=== PATIENT | male | born 1985 | race Caucasian/White ===

== ENCOUNTER 2018-03-15 08:23 | Emergency (ER) | payer MEDICAID, SELFPAY ==
[2018-03-15 08:36] VITALS: BP 152/106; PULSE 109; RESP 16; TEMP 37.2; O2SAT 96
--- NOTE | 2018-03-15 09:24 | ED.GENADUL ---
Disposition Clinical Impression: Gout Disposition: HOME Condition: Good Instructions: Gout (ED) Additional Instructions: Please return to the emergency department if the redness starts to travel up your leg and/or you develop a fever. Prescriptions: Colchicine 0.6 mg PO DAILY #4 tab MethylPREDNISolone [Medrol] 4 mg PO DIRECTED #1 packet Referrals: Shabnam Tejada [Primary Care Provider] - 2 weeks Medical Decision Making - Radiology Data Radiology results: report reviewed (Dr. Olguin: Soft tissue swelling. ), image reviewed (normal ankle x-ray) - Medical Decision Making High suspicion of gout. Less likely fx without injury and less likely cellulitis with no identification of portal of skin. He agreed to x-ray and medication for suspect gout. I agreed to not check uric acid and save the cost, because it would not change my plan of care. Yuri reports some relief after medications. I prescribed him a medrol dose pack and 4 tablets of colchicine. Advised to f/u with PCP Trixie in two weeks. Return to ED if symptoms worsen i.e. ascending redness and/or fever. He agreed with POC. - Differential Diagnosis gout, fx, sprain, cellulitis History of Present Illness - General Chief complaint: Orthopedic Stated complaint: RIGHT SWOLLEN ANKLE Time Seen by Provider: 03/15/18 09:21 Source: patient, RN notes reviewed Mode of arrival: ambulatory Limitations: no limitations - History of Present Illness Initial comments: 32 y/o male here with c/o right ankle pain. He tells me he woke up with the pain and swelling two days ago. Denies any injury. Denies any history of gout. Denies CP or SOB. He denies any new medications or diuretics. He does drink etoh regularly and enjoys a processed food diet, allot of cold cuts. Onset/Timin -: days(s) Location: right (ankle) Severity scale (1-10): 9 Quality: aching Consistency: constant Improves with: none Worsens with: none Associated Symptoms: denies other symptoms Treatments Prior to Arrival: none - Related Data Bupropion HCl [Wellbutrin Xl] 300 mg PO HS 03/05/14 BusPIRone [Buspar] 45 mg PO HS 03/05/14 Quetiapine Fumarate 400 mg PO HS 03/07/14 Chlorzoxazone [Parafon Forte Dsc] 750 mg PO TID 03/15/18 Colchicine 0.6 mg PO DAILY #4 tab 03/15/18 MethylPREDNISolone [Medrol] 4 mg PO DIRECTED #1 packet 03/15/18 Allergies Allergy/AdvReac Type Severity Reaction Status Date / Time No Known Allergies Allergy Unverified 07/04/14 09:41 Review of Systems Constitutional: no symptoms reported Respiratory: no symptoms reported Cardiovascular: denies: chest pain Gastrointestinal: denies: abdominal pain, nausea, vomiting, diarrhea Genitourinary: denies: dysuria Musculoskeletal: joint swelling (right ankle with pain). denies: back pain Skin: denies: rash Past Medical History - Past Medical History TBI, L ankle fx, Surgical history: other (hand surgery) Psychiatric history: anxiety, depression, other (insomnia) General Exam - General Limitations: no limitations General appearance: alert, in no apparent distress - Head Head exam: Present: atraumatic - Eye Eye exam: Present: normal apperance - Neck Neck exam: Present: normal inspection - Extremities Exam Extremities exam: Present: tenderness - Expanded Lower Extremity Exam Right Hip exam: Present: full ROM Upper Leg exam: Present: full ROM Knee exam: Present: full ROM. Absent: tenderness Lower Leg exam: Present: full ROM. Absent: tenderness, swelling, ecchymosis, Jere's sign Ankle exam: Present: full ROM, tenderness, swelling, erythema (to lateral maleous. ). Absent: abrasion, ecchymosis, deformity Foot/Toe exam: Present: full ROM. Absent: tenderness, swelling Neuro vascular tendon exam: Present: no vascular compromise Gait: observed and limited by pain - Back Exam Back exam: Present: full ROM - Neurological Exam Neurological exam: Present: alert, oriented X3, normal gait - Psychiatric Psychiatric exam: Present: normal affect, normal mood - Skin Skin exam: Present: warm, dry, intact, erythema (to right ankle) Course Vital Signs - 24 hr 03/15/18 08:36 Temperature 37.2 C Pulse 109 H Respiratory 16 Rate Blood Pressure 152/106 Pulse Oximetry 96
[2018-03-15] MEDS: Colchicine 0.6 MG TAB 1.2 MG PO (09:36)
[2018-03-15] MEDS: Ketorolac 60 MG/2 ML VIAL IM (09:37)
--- NOTE | 2018-03-15 09:54 | DI.REPORT_ITS ---
SYMPTOM/DIAGNOSIS: RT ANKLE SWELLING AND REDNESS WITHOUT INJURY, SUSPECT GOUT RIGHT ANKLE: There is soft tissue swelling around both malleoli. No fracture or ankle mortise widening is seen. IMPRESSION: Soft tissue swelling.
[2018-03-15 10:35] VITALS: BP 150/98
== END 2018-03-15 10:34 | disposition home or self-care (01) ==
PROVIDERS: Emergency Provider Physician Assistant; PCP Nurse Practitioner Family
DX: M10.9 Gout, unspecified (principal)
CPT/HCPCS: 96372; 99284; 73610; J1885

== ENCOUNTER 2018-11-12 14:13 | Outpatient (REF) | payer MEDICAID, SELFPAY ==
[2018-11-12 19:38] LABS: Abs Immature Grans 0.02 k/cumm (0.0-0.09); Absolute Basophil Count 0.02 k/cumm (0.0-0.2); Absolute Eosinophil Count 0.37 k/cumm (0.0-0.7); Absolute Lymphocyte Count 1.61 k/cumm (1.2-3.4); Absolute Monocyte Count 0.44 k/cumm (0.11-0.7); Basophils % 0.3; HCT 42.1 % (40.0-50.0); HGB 14.9 g/dL (13.5-17.5); Immature Grans % 0.3; Lymphocytes % 26.1; Mean Corp. HGB Concentration 35.4 g/dL (32.0-36.0); Mean Corpuscular Volume 93.1 fL (80-95); Mean Platelet Volume 10.3 fL (8.0-11.0); Monocytes % 7.1; Neutrophils % 60.2; Platelet Count 226 x1000/uL (130-400); RBC 4.52 m/cumm (4.50-6.00); RBC Distribution Width 12.5 % (11.8-14.1); White Blood Cell Count 6.16 k/cumm (4.4-10.8)
[2018-11-12 19:57] LABS: ALT 52 U/L (12-78); AST 54 U/L (15-37); Albumin 3.6 g/dL (3.4-5.0); Alkaline Phosphatase 146 U/L (46-116); Anion Gap 15.7 mmol/L (3-11); BUN 6 mg/dL (7-18); CO2 27.3 mmol/L (21.0-32.0); CREATININE 1.38 mg/dL (0.70-1.30); Calcium 8.9 mg/dL (8.5-10.1); Chloride 97 mmol/L (98-107); Cholesterol 227 mg/dL (50-200); Estimated GFR 59.34 (mL/min/1.73m2); Glucose 124 mg/dL (70-100); HDL Cholesterol 27 mg/dL (40-60); LDL CHOLESTEROL 147 mg/dL (<100); Sodium 140 mmol/L (136-145); TSH (W/Ref FT4) 3.52 uIU/mL (0.358-3.74); Total Protein 7.4 g/dL (6.4-8.2); Triglyceride 387 mg/dL (30-150)
[2018-11-12 20:38] LABS: Potassium 2.7 mmol/L (3.5-5.1)
== END 2018-11-12 14:33 ==
LOC: NCHCN 14:13
PROVIDERS: PCP Nurse Practitioner Family; Visit Provider Nurse Practitioner Family
DX: F31.30 Bipolar disorder, current episode depressed, mild or moderate severity, unspecified (principal); E66.9 Obesity, unspecified; F10.10 Alcohol abuse, uncomplicated
CPT/HCPCS: 80053; 80061; 83721; 84443; 85025

== ENCOUNTER 2019-01-22 16:35 | Outpatient (REF) | payer MEDICAID, SELFPAY ==
[2019-01-22 18:15] LABS: HCT 41.9 % (40.0-50.0); HGB 14.9 g/dL (13.5-17.5); Mean Corp. HGB Concentration 35.6 g/dL (32.0-36.0); Mean Corpuscular Hemoglobin 33.6 pg (27.0-33.0); Mean Corpuscular Volume 94.6 fL (80-95); Mean Platelet Volume 9.6 fL (8.0-11.0); Platelet Count 194 x1000/uL (130-400); RBC 4.43 m/cumm (4.50-6.00); RBC Distribution Width 12.5 % (11.8-14.1)
[2019-01-22 18:27] LABS: Anion Gap 12.1 mmol/L (3-11); BUN 6 mg/dL (7-18); CO2 27.9 mmol/L (21.0-32.0); CREATININE 1.21 mg/dL (0.70-1.30); Calcium 9.1 mg/dL (8.5-10.1); Chloride 98 mmol/L (98-107); Glucose 126 mg/dL (70-100); Sodium 138 mmol/L (136-145)
[2019-01-22 18:36] LABS: Potassium 2.9 mmol/L (3.5-5.1)
== END 2019-01-22 16:55 ==
LOC: NCHCN 16:35
PROVIDERS: PCP Nurse Practitioner Family; Visit Provider Nurse Practitioner Family
DX: E87.6 Hypokalemia (principal); R00.0 Tachycardia, unspecified
CPT/HCPCS: 80048; 85027; 83735

== ENCOUNTER 2019-03-19 16:21 | Outpatient (REF) | payer MEDICAID, SELFPAY ==
[2019-03-19 20:41] LABS: ALT 71 U/L (12-78); AST 72 U/L (15-37); Albumin 3.9 g/dL (3.4-5.0); Alkaline Phosphatase 170 U/L (46-116); Anion Gap 14.9 mmol/L (3-11); BUN 5 mg/dL (7-18); Bilirubin, Total 0.3 mg/dL (0.2-1.0); CO2 25.1 mmol/L (21.0-32.0); Calcium 9.2 mg/dL (8.5-10.1); Chloride 102 mmol/L (98-107); Glucose 113 mg/dL (70-100); Potassium 3.6 mmol/L (3.5-5.1); Sodium 142 mmol/L (136-145); Total Protein 7.7 g/dL (6.4-8.2)
== END 2019-03-19 16:41 ==
LOC: NCHCN 16:21
PROVIDERS: PCP Nurse Practitioner Family; Visit Provider Nurse Practitioner Family
DX: I10 Essential (primary) hypertension (principal); E87.6 Hypokalemia; R00.0 Tachycardia, unspecified
CPT/HCPCS: 80053

== ENCOUNTER 2019-10-12 13:24 | Emergency (ER) | payer MEDICAID, SELFPAY ==
[2019-10-12 13:34] VITALS: BP 122/86; PULSE 107; RESP 15; TEMP 36.7; O2SAT 97
--- NOTE | 2019-10-12 13:44 | ED.GENADUL_ITS ---
Discharge Plan Disposition Patient Disposition: HOME Condition: Stable Discharge Details Chief Complaint: GenMedical Clinical Impression: Right knee sprain, History of gout Primary Care Provider: Tariq Lloyd ED Provider: Katiuska Christy Home Meds and New Rx's Prescriptions: Continued bupropion HCl [Wellbutrin XL] 300 MG tablet extended release 24 hr 300 mg PO HS RF: 0 quetiapine 400 MG tablet 400 mg PO HS RF: 0 colchicine [Colcrys] 0.6 MG tablet 0.6 mg PO DAILY Qty: 4 RF: 0 lisinopril 5 mg Tablet PO DAILY RF: 0 Discharge Instructions Instructions: Knee Sprain (ED), Gout (ED) Additional Instructions: Rest, ice, and elevate the affected area as much as possible. Keep the hinged knee brace in place as long as possible and use the crutches for ambulation while pain present. Alternate tylenol and motrin as needed and directed for pain. If you have no improvement or worsening of symptoms in the next 1 to 2 weeks, follow-up with orthopedics for further evaluation and consideration for physical therapy or outpatient MRI. Return to the emergency department if you develop any worsening or new concerning symptoms. You should also follow-up with your primary care doctor within the next week for further evaluation of your gout. Referrals: Case Forrest MD [ [facility] STAFF PHYSICIAN] - Discharge Data Discharge Date/Time-TO BE ENTERED AT DEPARTURE: 10/12/19 15:13 Discharge Physician: Katiuska Christy Medical Decision Making 34-year-old male with a history of gout presents with right knee pain for the past few days consistent with gout flare which has improved with NSAIDs, now with worsening pain after feeling a popping sensation in the posterior knee while running out of his apartment due to fire alarm last night. Patient is noted to have moderate right knee edema which he states was present with his gout flare this week. He has pain with all range of motion, most significantly with valgus stress but no obvious ligamentous instability. There is no evidence of cellulitis or trauma. He is neurovascularly intact. Patient appeared uncomfortable with range of motion. A dose of Vicodin given. X-ray noted effusion but no other injury. Patient was placed in a hinged knee brace and given crutches. He was advised to follow-up with orthopedics for further evaluation if symptoms do not improve or worsen for consideration for MRI. Usual and customary return precautions given prior to discharge. Imaging Data Radiologic Study: Radiologist's impression: XR Left Knee Exam date and time: 10/12/2019 2:00 PM Age: 34 years old Clinical indication: Pain; Knee; Right; Patient HX: popped while running. Limited rom TECHNIQUE: Imaging protocol: XR Left knee. Views: 4 or more views. COMPARISON: No relevant prior studies available. FINDINGS: Bones/joints: Osseous structures of the knee normal. No fracture. No joint effusion. Soft tissues unremarkable. Soft tissues: See Bones/joints Finding. Small joint effusion. IMPRESSION: Normal knee. Small joint effusion HPI General Mode of arrival: ambulatory . Date/Time Provider Initiated Documentation: 10/12/19 13:32 . Limitations to Documentation: no limitations . Information obtained by: patient . History of Present Illness 34 year old M presents to the emergency department with the chief complaint of Right knee pain, described as moderate, Quality is described as aching, Patient started experiencing this day(s) (3) and it has been constant. Cold therapy improves symptom(s),, Immobilization improves symptom(s), and Rest improves symptom(s), Movement worsens symptoms and Other factors that worsen symptoms (Weightbearing) . Patient notes no other symptoms.. Patient did receive the following treatments prior to arrival, NSAID Related Data Home Medications Medication Instructions Recorded Confirmed bupropion HCl [Wellbutrin XL] 300 mg PO HS 03/05/14 10/12/19 quetiapine 400 mg PO HS 03/07/14 10/12/19 colchicine [Colcrys] 0.6 mg PO DAILY #4 tab 03/15/18 10/12/19 lisinopril mg PO DAILY 10/12/19 Previous Rx's Medication Instructions Recorded colchicine [Colcrys] 0.6 mg PO DAILY #4 tab 03/15/18 Allergies Allergy/AdvReac Type Severity Reaction Status Date / Time dust AdvReac Mild get all Uncoded 10/12/19 13:43 stuffed up General Stated Complaint: GenMedical CARLOS: 3 Review of Systems All systems reviewed & are unremarkable except as noted in HPI and below Constitutional Constitutional: Reports as per HPI, Denies chills and Denies fever(s) Eyes Eyes: Denies blurry vision ENT Ears, Nose, Mouth, and Throat: Denies dizziness, Denies sore throat and Denies throat swelling Cardiovascular Cardiovascular: Denies chest pain and Denies dyspnea Respiratory Respiratory: Denies cough and Denies dyspnea Gastrointestinal Gastrointestinal: Denies abdominal pain, Denies diarrhea and Denies vomiting Genitourinary Genitourinary: Denies hematuria and Denies dysuria Musculoskeletal Musculoskeletal: Denies back pain and Denies numbness Integumentary/Breasts Skin/Breast: Denies lesions and Denies rash Neurologic Neurologic: Denies dizziness, Denies focal weakness and Denies numbness Allergic/Immunologic Allergic/Immunologic: Denies throat swelling [facility] Medical History Anxiety and depression (Inactive) Bipolar disorder (Inactive) Gout (Chronic) Insomnia (Inactive) Surgical History History of hand surgery (Acute) History of oral surgery (Acute) Social History Smoking/Tobacco Use Status: Current every day Alcohol Intake: current Alcohol Intake frequency: a few times a week Drug use: Current Sobriety Substance use type: does not use Do you feel safe at home: Yes Do you feel safe in your relationship?: Yes Exam Const General: cooperative, healthy appearing and no acute distress HENMT Head: normal to inspection Mouth: oral mucosae normal Eyes General: appearance normal, both eyes and all related structures Neck Neck: normal visual inspection Resp Effort & Inspection: normal respiratory effort and able to speak in complete sentences Cardio Rate: regular rate Skin General skin exam: no rashes or lesions noted Neuro General: alert, awake and oriented x3 Motor: muscle tone normal throughout Extrem Other: Right knee: moderate edema extending from anterior to posterior aspect. Pain with valgus stress. Negative anterior and posterior drawer test. Negative Cutler's test. No pain with varus stress. No obvious ligamentous instability. Right lower leg normal to inspection. Right DP/PT pulses intact. Psych Appearance: grossly normal Affect: normal affect Course Vital Signs Vital signs: Vital Signs Temperature 98.1 F 10/12/19 13:34 Pulse 107 H 10/12/19 13:34 Respiratory Rate 15 10/12/19 13:34 Blood Pressure 122/86 10/12/19 13:34 Pulse Oximetry 97 10/12/19 13:34 Temperature 98.1 F 10/12/19 13:34 Temperature Source Tympanic 10/12/19 13:34 Pulse 107 H 10/12/19 13:34 Respiratory Rate 15 10/12/19 13:34 Respiratory Effort Non-Labored 10/12/19 13:35 Blood Pressure 122/86 10/12/19 13:34 Blood Pressure Position Sitting 10/12/19 13:34 Pulse Oximetry 97 10/12/19 13:34 Oxygen Delivery Method Room Air 10/12/19 13:34 Oxygen Flow Rate 0 10/12/19 13:34
--- NOTE | 2019-10-12 13:45 | DI.RAD_ITS ---
EXAM: XR KNEE RT 4V AP,LAT,BONNIE,PAT INDICATION: POP R KNEE WHILE RUNNING, R/O ACUTE FX/EFFUSION. COMPARISON: RIGHT KNEE 3 VIEWS from 04/22/2010 TECHNIQUE: 2D digital imaging was performed. FINDINGS: No fracture is identified. There is a small joint effusion. The joint spaces are well maintained. IMPRESSION: Small joint effusion. DATA REPOSITORY: RADIATION DOSE DELIVERED:
[2019-10-12 13:48] VITALS: RESP 15
[2019-10-12] MEDS: HYDROcodone 5/Acetaminophen 325 TAB PO (14:31)
--- NOTE | 2019-10-12 14:36 | DI.VRAD_ITS ---
PROCEDURE INFORMATION: Exam: XR Left Knee Exam date and time: 10/12/2019 2:00 PM Age: 34 years old Clinical indication: Pain; Knee; Right; Patient HX: popped while running. Limited rom TECHNIQUE: Imaging protocol: XR Left knee. Views: 4 or more views. COMPARISON: No relevant prior studies available. FINDINGS: Bones/joints: Osseous structures of the knee normal. No fracture. No joint effusion. Soft tissues unremarkable. Soft tissues: See Bones/joints Finding. Small joint effusion. IMPRESSION: Normal knee. Small joint effusion Dictated and Authenticated by: Lester Becerra MD. Ordering:FELISA Harp MD
[2019-10-12 15:07] VITALS: BP 128/88; PULSE 104; TEMP 36.8; O2SAT 96
[2019-10-12 15:14] VITALS: BP 128/88; PULSE 104; O2SAT 96
== END 2019-10-12 15:13 | disposition home or self-care (01) ==
PROVIDERS: Emergency Provider Physician Assistant; PCP Nurse Practitioner Family
DX: M25.561 Pain in right knee (principal); S83.91XA Sprain of unspecified site of right knee, initial encounter; X58.XXXA Exposure to other specified factors, initial encounter; Z87.39 Personal history of other diseases of the musculoskeletal system and connective tissue
CPT/HCPCS: 29505; 99284; 73564; 99283; E0114; L1810

== ENCOUNTER 2019-10-25 13:56 | Outpatient (REF) | payer MEDICAID, SELFPAY ==
[2019-10-25 18:37] LABS: HCT 36.7 % (40.0-50.0); HGB 12.1 g/dL (13.5-17.5); Mean Corpuscular Volume 97.1 fL (80-95); Mean Platelet Volume 8.9 fL (8.0-11.0); Platelet Count 653 x1000/uL (130-400); RBC 3.78 m/cumm (4.50-6.00); RBC Distribution Width 12.4 % (11.8-14.1); White Blood Cell Count 5.18 k/cumm (4.4-10.8)
[2019-10-25 19:11] LABS: ALT 22 U/L (16-63); AST 23 U/L (15-37); Albumin 3.3 g/dL (3.4-5.0); Alkaline Phosphatase 190 U/L (46-116); Anion Gap 9.4 mmol/L (3-11); BUN 14 mg/dL (7-18); Bilirubin, Total 0.3 mg/dL (0.2-1.0); CO2 31.6 mmol/L (21.0-32.0); CREATININE 1.34 mg/dL (0.70-1.30); Chloride 100 mmol/L (98-107); Ferritin 216 ng/mL (26-388); Glucose 107 mg/dL (74-106); Potassium 3.1 mmol/L (3.5-5.1); Sodium 141 mmol/L (136-145); Total Protein 7.4 g/dL (6.4-8.2)
[2019-10-25 19:27] LABS: Hemoglobin A1C 5.8 % (3.8-5.6)
[2019-10-25 19:53] LABS: Uric Acid 10.1 mg/dL (3.5-7.2)
[2019-10-28 07:17] LABS: Vitamin D 25 Total 5.9 ng/ml (30-100)
== END 2019-10-25 14:16 ==
LOC: NCHCN 13:56
PROVIDERS: PCP Nurse Practitioner Family; Visit Provider Nurse Practitioner Family
DX: I10 Essential (primary) hypertension (principal); F10.10 Alcohol abuse, uncomplicated; G47.9 Sleep disorder, unspecified
CPT/HCPCS: 80053; 82306; 85027; 82728; 83036; 84550

== ENCOUNTER 2019-11-08 02:30 | Emergency (ER) | payer MEDICAID, SELFPAY ==
[2019-11-08 02:31] VITALS: BP 164/108; PULSE 107; RESP 18; TEMP 36.6; O2SAT 98
--- NOTE | 2019-11-08 02:43 | W.ED.GENAD ---
Discharge Plan Disposition Patient Disposition: HOME Condition: Good Discharge Details Chief Complaint: Orthopedic Clinical Impression: Gout flare Primary Care Provider: Tariq Lloyd ED Provider: Dean Coleman Meds and New Rx's Prescriptions: New Hydrocodone/Apap 5/325, 4 Tab [[place] 5/325, 4 Tabs/Btl] 1 tab PO BID Qty: 0 RF: 0 Continued bupropion HCl [Wellbutrin XL] 300 MG tablet extended release 24 hr 300 mg PO HS RF: 0 quetiapine 400 MG tablet 400 mg PO HS RF: 0 lisinopril 5 mg Tablet PO DAILY RF: 0 Discharge Instructions Instructions: Hydrocodone/Acetaminophen (By mouth), Gout (ED) Additional Instructions: Wear knee brace and use crutches for comfort. Continue ibuprofen for the next couple of days. Hydrocodone/acetaminophen for severe pain. Follow-up with primary care next week for reevaluation. Discussed specifically use of allopurinol to prevent gout flares. Return to ED for fever, increasing pain, redness, swelling of knee. Referrals: Tariq Lloyd, [employer] [Primary Care Provider] - Medical Decision Making Patient has been using ibuprofen throughout the day. He has knee brace and crutches. Has documented history of gout. Is not on allopurinol. Will treat with 1.2 mg dose of colchicine now and 0.6 mg dose in 1 hour. Will give [place] for pain. Will discharge with [place] prepack bottle. Will continue ibuprofen over the next few days as well. Contact primary care for follow-up next week. Discussed specifically use of allopurinol. Patient was made aware of alcohol being a trigger for gouty flares as well. Return to ED for fever, increasing pain, redness, other concerns or problems. Medical Records Medical records reviewed: Yes I reviewed the patient's medical records. HPI General Mode of arrival: EMS. Date/Time Provider Initiated Documentation: 11/08/19 02:31. Limitations to Documentation: no limitations. Information obtained by: patient, RN notes reviewed and old records reviewed. HPI Narrative: Patient presents to ED with worsening right knee pain since yesterday morning. He has a history of gout which typically affects the right ankle or the right knee. He was last seen here at the end of September with gout flare/injury. He did get better. He had been doing fine for the most part in the last 24 hours. He has developed right knee pain and swelling and decreased range of motion once again. There is no injury. There is no redness. There is no fever. He denies any URI symptoms, cough. He does admit to alcohol use. He has had increased gouty flares in the last year. Related Data Home Medications Medication Instructions Recorded Confirmed bupropion HCl [Wellbutrin XL] 300 mg PO HS 03/05/14 11/08/19 quetiapine 400 mg PO HS 03/07/14 11/08/19 lisinopril mg PO DAILY 10/12/19 HYDROcodone/APAP 5/325, 4 tab 1 tab PO BID #0 tab-cap 11/08/19 [[place] 5/325, 4 tabs/btl] Previous Rx's Medication Instructions Recorded HYDROcodone/APAP 5/325, 4 tab 1 tab PO BID #0 tab-cap 11/08/19 [[place] 5/325, 4 tabs/btl] Allergies Allergy/AdvReac Type Severity Reaction Status Date / Time dust AdvReac Mild get all Uncoded 11/08/19 02:36 stuffed up General Stated Complaint: Orthopedic CARLOS: 3 Review of Systems Narrative: As documented in HPI otherwise negative as below. Const: no fever, chills, weakness Resp: no cough, SOB, pleuritic pain CV: no CP, diaphoresis, edema, syncope GI: no abdominal pain, nausea, vomiting, diarrhea Neuro: no headache, numbness, focal weakness, confusion PFSH Social History (System 10/14/19 @ 11:22 by [place] Key) Smoking/Tobacco Use Status: Current every day Alcohol Intake: current Alcohol Intake frequency: a few times a week Drug use: Current Sobriety Substance use type: does not use Do you feel safe at home: Yes Do you feel safe in your relationship?: Yes Exam Narrative Exam Narrative: Vitals: Afebrile. Elevated heart rate and blood pressure likely due to discomfort. Normal room air pulse ox. Const: WDWN male in NAD. HEENT: NC/AT. Normal facial exam. Eyes: Normal conjunctiva and sclera. Neck: Supple. Trachea midline. Lungs: Normal respiratory effort. Neuro: A+O x 3. Normal speech, mentation, gait. Cranial nerves II - XII grossly intact. No gross motor or sensory deficit. Ext: No C/C/E. Right knee with obvious effusion. No erythema. Joint warm to touch. Unable to fully extend. Held in position of comfort at about 30 degrees. Able to flex to about 75 degrees. Neurovascularly intact distally. Skin: Warm and dry without erythema. Course Vital Signs Vital signs: Vital Signs Temperature 97.9 F 11/08/19 02:31 Pulse 107 H 11/08/19 02:31 Respiratory Rate 18 11/08/19 02:31 Blood Pressure 164/108 H 11/08/19 02:31 Pulse Oximetry 98 11/08/19 02:31 Temperature 97.9 F 11/08/19 02:31 Temperature Source Temporal Artery Scan 11/08/19 02:31 Pulse 107 H 11/08/19 02:31 Respiratory Rate 18 11/08/19 02:31 Respiratory Effort 11/08/19 02:38 Blood Pressure 164/108 H 11/08/19 02:31 Blood Pressure Position Sitting 11/08/19 02:31 Pulse Oximetry 98 11/08/19 02:31 Oxygen Delivery Method Room Air 11/08/19 02:31 Oxygen Flow Rate 0 11/08/19 02:31 Pain Level 10 11/08/19 02:31
[2019-11-08] MEDS: Colchicine 0.6 MG TAB 1.2 MG PO (02:48)
[2019-11-08] MEDS: HYDROcodone 5/Acetaminophen 325 TAB PO (02:49)
[2019-11-08] MEDS: Colchicine 0.6 MG TAB PO (04:04)
--- NOTE | 2019-11-08 04:14 | NUR.NOTE ---
Nursing Note: pt reports pain decreased to 6/10. second dose of colchicine given. POC: pt states he cannot obtain a ride home until 0600.
[2019-11-08 05:33] VITALS: BP 166/101; PULSE 87; RESP 18; O2SAT 96
== END 2019-11-08 05:30 | disposition home or self-care (01) ==
PROVIDERS: Emergency Provider Emergency Medicine; PCP Nurse Practitioner Family
DX: M10.9 Gout, unspecified (principal)
CPT/HCPCS: 99283

== ENCOUNTER 2020-02-07 19:15 | Observation (INO) | payer MEDICAID, SELFPAY ==
[2020-02-07 19:21] VITALS: BP 162/128; PULSE 115; RESP 25; TEMP 37.1; O2SAT 99
--- NOTE | 2020-02-07 19:21 | ED.GENADUL_ITS ---
Discharge Plan Disposition Patient Disposition: [facility] INPATIENT Condition: Stable Discharge Details Chief Complaint: PsychEval Clinical Impression: Suicidal ideation, Hypertension, Noncompliance with medications, Major depression Primary Care Provider: Tariq Lloyd ED Provider: Katiuska Christy Home Meds and New Rx's Prescriptions: No Action bupropion HCl [Wellbutrin XL] 300 MG tablet extended release 24 hr 300 mg PO HS RF: 0 quetiapine 400 MG tablet 400 mg PO HS RF: 0 clonidine HCl 0.1 mg Tablet 0.2 mg PO QHS RF: 0 lisinopril 5 mg Tablet PO DAILY RF: 0 Medical Decision Making 1929 -- 34-year-old male with a history of anxiety and depression presents with thoughts of suicide for the past 34 years and a current plan to by carbon monoxide poisoning, self-inflicted gunshot wound or per his mom hanging. BP hypertensive. Heart rate tachycardic. He is afebrile and appears nontoxic. No acute findings on exam. Case also discussed with his mom and therapist who states that patient's thoughts of suicide have been increasing over the past few weeks and they are concerned for his safety at home. They state he does have good social supports with his mom, and 12-year-old daughter. As patient has been taking recently, will check alcohol level, screening labs and have mental health evaluate. 2029 --labs reviewed. Potassium 2.9, likely due to lisinopril. UDS positive for THC. Alcohol level 79. Patient is clinically sober. Mental health evaluated patient at bedside to resume and feels that he is appropriate for inpatient psychiatric hospitalization. Patient is currently voluntary. 2129 --discussed with hospitalist who accepts patient for admission. BP hypertensive in the ED. patient has not taken his clonidine or lisinopril for the past few days. He denies any complaint of headache, chest pain or shortness of breath. We will give a dose of his clonidine and lisinopril. Medical Records Medical records reviewed: Yes I reviewed the patient's medical records. HPI General Mode of arrival: ambulatory . Date/Time Provider Initiated Documentation: 02/07/20 19:20 . Limitations to Documentation: no limitations . Information obtained by: patient . HPI Narrative: Patient is a 34-year-old male with a history of anxiety and depression currently taking Wellbutrin, Seroquel, clonidine and lisinopril who presents with thoughts of suicide for the past 34 years . Patient states that he has a plan to either by carbon monoxide poisoning or to shoot himself but states he does not have a car or access to firearms. He was brought here by his mom. Spoke to his mom over the phone and she states that he has had increasing suicidal ideation for the past few weeks. She states he has a good relationship with her as well as with his and 12-year-old daughter with whom he lives with. She states he is pleasant when he is not drinking. She states he is drinking every other night and he does not take his medications when he is drinking. She states he has extreme anxiety around strangers. She states he also can get angry at times and breaks objects at home but does not become physically aggressive with other people. She states he recently has become overwhelmed with his financial situation as his was denied Social Security disability and he has to take alone out. Patient states he is followed by Tariq Lloyd and that his psychiatric medications are prescribed by Sharyn Sims. His mom states his therapist is Sherry Lutz on [facility]. Case was also discussed with Guerita and she states she last saw him last weekend and that his depression and thoughts of suicide has been progressing for a few weeks. She states he may benefit from inpatient psychiatric hospitalization. Patient states he last drank alcohol earlier this morning and that he has been drinking a third of whiskey every other day. He denies any drug use. He denies any acute medical complaints. Related Data Home Medications Medication Instructions Recorded Confirmed bupropion HCl [Wellbutrin XL] 300 mg PO HS 03/05/14 02/07/20 quetiapine 400 mg PO HS 03/07/14 02/07/20 lisinopril mg PO DAILY 10/12/19 clonidine HCl 0.2 mg PO QHS 02/07/20 02/07/20 Allergies Allergy/AdvReac Type Severity Reaction Status Date / Time dust AdvReac Mild get all Uncoded 02/07/20 19:24 stuffed up General CARLOS: 3 Review of Systems All systems reviewed & are unremarkable except as noted in HPI and below Constitutional Constitutional: Reports as per HPI, Denies chills and Denies fever(s) Eyes Eyes: Denies blurry vision ENT Ears, Nose, Mouth, and Throat: Denies dizziness, Denies sore throat and Denies throat swelling Cardiovascular Cardiovascular: Denies chest pain and Denies dyspnea Respiratory Respiratory: Denies cough and Denies dyspnea Gastrointestinal Gastrointestinal: Denies abdominal pain, Denies diarrhea and Denies vomiting Genitourinary Genitourinary: Denies hematuria and Denies dysuria Musculoskeletal Musculoskeletal: Denies back pain and Denies numbness Integumentary/Breasts Skin/Breast: Denies lesions and Denies rash Neurologic Neurologic: Denies dizziness, Denies localized weakness and Denies numbness Psychiatric Psychiatric: Reports anxiety, Reports change in appetite, Reports depression, Reports hopelessness, Reports homicidal ideation and Reports suicidal ideation Allergic/Immunologic Allergic/Immunologic: Denies throat swelling [facility] Medical History Alcohol abuse (Chronic) Anxiety and depression (Inactive) Bipolar disorder (Inactive) CKD (chronic kidney disease) stage 3, GFR 30-59 ml/min (Acute) Gout (Chronic) Hypokalemia (Chronic) Insomnia (Inactive) Surgical History History of hand surgery (Acute) History of oral surgery (Acute) Social History Smoking/Tobacco Use Status: Current every day Alcohol Intake: current Alcohol Intake frequency: a few times a week Drug use: Current Sobriety Substance use type: does not use Do you feel safe at home: Yes Do you feel safe in your relationship?: Yes Exam Const General: cooperative and no acute distress HENMT Head: normal to inspection Face and sinus: normal facial exam Eyes General: appearance normal, both eyes and all related structures Pupils: PERRL EOM: EOM intact bilaterally Neck Neck: normal visual inspection and No submandibular swelling Lymphatic: no lymphadenopathy noted Chest Chest: normal inspection of the chest and no tenderness Resp Effort & Inspection: normal respiratory effort and able to speak in complete sentences Auscultation: clear to auscultation bilaterally Cardio Rate: regular rate Rhythm: regular rhythm GI Inspection: normal to inspection Palpation: soft, not firm, not rigid and nontender Auscultation: normal bowel sounds Skin General skin exam: no rashes or lesions noted Neuro General: patient alert, patient awake and patient oriented x3 Cognition: normal cognition Speech: speech normal Motor: muscle tone normal throughout Sensory Exam: no sensory deficits noted Extrem General: normal to inspection, full ROM, capillary refill normal, no calf tenderness bilaterally and no edema Psych Appearance: grossly normal Mental Status: mental status grossly normal Speech and Movement: speech and movement normal Mood: labile mood and irritable mood Affect: labile affect and irritable affect
[2020-02-07 20:16] LABS: Abs Immature Grans 0.01 k/cumm (0.0-0.09); Absolute Basophil Count 0.02 k/cumm (0.0-0.2); Absolute Eosinophil Count 0.14 k/cumm (0.0-0.7); Absolute Lymphocyte Count 2.15 k/cumm (1.2-3.4); Absolute Monocyte Count 0.32 k/cumm (0.11-0.7); Absolute Neutrophil Count 2.39 k/cumm (1.2-6.7); Basophils % 0.4; Eosinophils % 2.8; HCT 45.6 % (40.0-50.0); HGB 15.7 g/dL (13.5-17.5); Immature Grans % 0.2 %; Lymphocytes % 42.7; Mean Corp. HGB Concentration 34.4 g/dL (32.0-36.0); Mean Corpuscular Hemoglobin 31.6 pg (27.0-33.0); Mean Corpuscular Volume 91.8 fL (80-95); Monocytes % 6.4; Neutrophils % 47.5; Platelet Count 286 x1000/uL (130-400); RBC 4.97 m/cumm (4.50-6.00); RBC Distribution Width 15.4 % (11.8-14.1); White Blood Cell Count 5.03 k/cumm (4.4-10.8)
[2020-02-07 20:34] LABS: ALT 35 U/L (16-63); AST 43 U/L (15-37); Albumin 4.1 g/dL (3.4-5.0); Alkaline Phosphatase 274 U/L (46-116); Anion Gap 12.5 mmol/L (3-11); BUN 5 mg/dL (7-18); Bilirubin, Total 0.7 mg/dL (0.2-1.0); CO2 27.5 mmol/L (21.0-32.0); CREATININE 1.37 mg/dL (0.70-1.30); Calcium 8.8 mg/dL (8.5-10.1); Chloride 99 mmol/L (98-107); ETHANOL BLOOD 79.2 mg/dL (<3); Estimated GFR 59.48 (mL/min/1.73m2); Glucose 111 mg/dL (74-106); Sodium 139 mmol/L (136-145); Total Protein 8.6 g/dL (6.4-8.2)
[2020-02-07 20:40] LABS: *AMPHETAMINES SCREEN URINE Negative (Negative); *BARBITURATES SCREEN URINE Negative (Negative); *BENZODIAZEPINES SCREEN URINE Negative (Negative); Cannabinoids THC POSITIVE (Negative); Cocaine Screen,Urine Negative (Negative); METHADONE URINE SCREEN Negative (Negative); OPIATES URINE SCREEN Negative (Negative)
[2020-02-07 20:40] LABS: Potassium 2.9 mmol/L (3.5-5.1)
[2020-02-07 20:43] LABS: Tricyclic Antidepressants Negative (Negative)
[2020-02-07] MEDS: Potassium Chloride 20 MEQ TABCR 40 MEQ PO (21:00)
--- NOTE | 2020-02-07 21:16 | PDOC.MHCN ---
Date of service: 02/07/20 Time of Service: 21:16 Mental Health Crisis Note Presenting Issue How did you arrive at the ED and why did you come: Client was brought to ED by his mother with SI. Client spoke to his substance abuse counselor earlier in the day and she suggested he go to the ED. Precipitating Factors Client reports that he has had SI everyday for 34 years. Client reports that his preferred method of suicide is carbon monoxide poisoning or shotgun. Client reports HI, but only towards humans. Client reports a diagnosis of Bipolar as well as Depression. Client reports that the only thing that will cure him is suicide. Disposition BEHAVIOR: agitated, but cooperative when speaking with this comic book writer EYE CONTACT: minimal eye contact MOOD: irritable and depressed AFFECT: flat APPETITE: reports that he only eats because he has to SLEEP(trouble falling/staying asleep: bad insomnia Plan Client is willing to seek inpatient hospitalization voluntarily. Client will remain at [facility] until COVID results and placement. Spoke with health care marketing specialist and she will put safety plan in place for client. Signature Clinician's Name/Title: Karen Gavin [facility] Emergency Clinician
--- NOTE | 2020-02-07 21:28 | CMSP_ITS ---
- If Service Date Differs Date of service: 02/07/20 Time of Service: 21:28 Care Management Safety Plan Yuri arrives to the ED tonight with his Mother expressing SI and HI. He has a history of bipolar and depression. He has a psychiatric provider through [facility] and a therapist Guerita Armstrong. CM reviewed the plan with [facility] Crisis and ED provider. Yuri is voluntary at this time and agrees to be admitted and await psychiatric placement. [facility]. [facility] will continue to outreach psychiatric facilities to assist with placement for psychiatric stabilization. SAFETY PLAN: 1. Will remain on suicide precautions. with one on one supervision. 2. Will remain under the direct supervision of one-on-one staff at all times provided by [employer]; EMBEDDED SYSTEMS DEVELOPER, PRINCIPAL CONSULTING ENGINEER, director statistical programming in the transition area. 3. Patient with remain on SI/HI precautions with paper plates, paper cups and cardboard spoon. Absolutely no sharp objects. 4. Follow [facility] Management of the Admitted Behavioral Health Patient policy. 5. Shower permitted per RN discretion with an escort to shower room. 6. No personal belongings at this time. 7. Visitors-None at this time 8. Activities: Television, paper, coloring and crayons. 9. Bathroom privileges without limitation. 10. Phone: with supervision at the discretion of primary care team and with supervision. 11. Due to VOLUNTARY status, if the patient wishes to leave [facility], the [facility] bench worker binding must be contacted to re-evaluate the patient before the patient exiting the building. Bed status no available beds this evening, [facility] crisis will follow up with facilities in the morning and continue to outreach for placement.
[2020-02-07 21:38] VITALS: BP 159/120; PULSE 89; O2SAT 100
[2020-02-07] MEDS: cloNIDine 0.1 MG TAB PO ×2 (21:55→23:22)
[2020-02-07] MEDS: Lisinopril 10 MG TAB PO (21:56)
--- NOTE | 2020-02-07 22:06 | W.PM.HP.N ---
Date of service: 02/07/20 Time of Service: 22:06 Assessment and Plan Assessment and plan (1) Suicidal ideation: Start date: 02/07/20 Status: Acute Assessment and plan: This is a 34-year-old gentleman who has had depression most of his life and is been stable from his psychiatric disease. He is noncompliant with medical therapy and has had increased suicidal ideation recently with his family concerned. He is observed overnight for pending psychiatric inpatient placement for further care. He is voluntary. He appears to have poor insight into his psychiatric disease and is overwhelmed and frustrated with financial stressors. He also drinks every other day as self-medication though he states he would prefer to use THC instead. He obviously has addictive qualities. He has been medically cleared in the ED though he does have stable chronic CKD and recurrent hypokalemia from his chronic alcohol use with poor dietary habits. He will be reevaluated by mental health in the morning for inpatient psychiatric care placement with labs to be repeated in the morning and supplements of potassium in the ED and in the morning if needed. He will not have IV therapy but will be observed with CIWA protocol and oral Ativan if needed. He is hypertensive and may be having rebound hypertension being on clonidine nightly but not taking his medications as prescribed. He is having no cardiovascular complaints. (2) Hypertension: Status: Chronic Assessment and plan: Chronically uncontrolled with patient noncompliant with medical therapy. He appears to be responding to clonidine orally and this can be given as often as 0.4 mg every 8 hours with 0.4 mg given tonight with his usual dose being 0.2 mg nightly. His anxiety may be contributing to his elevated blood pressure and we need to observe closely for alcohol withdrawal with oral Ativan as needed. Qualifiers: Hypertension type: essential hypertension Qualified Code(s): I10 - Essential (primary) hypertension (3) Alcohol abuse: Status: Chronic Assessment and plan: Patient drinks 1/4 gallon of whiskey every other night to help him sleep and has poor insight into his addictive behavior. He prefers THC was also has some addictive qualities. This can be addressed with his inpatient psych care. Watch for alcohol withdrawal during his observation. (4) Hypokalemia: Status: Chronic Assessment and plan: Patient chronically has hypokalemia and this can be investigated further as an outpatient but supplemented orally temporarily. The obvious etiology would be his chronic alcohol use with electrolyte abnormality but with his hypertension further investigations of his renal and adrenal status needs to be entertained. This can be reviewed with his PCP. (5) CKD (chronic kidney disease) stage 3, GFR 30-59 ml/min: Status: Chronic Assessment and plan: By review of his record this appears to be the patient's renal status baseline and may be secondary to poorly controlled diabetes but may require further investigation with his uncontrolled hypertension. This can be an outpatient work-up. For now we will orally hydrate. Patient not requiring IVs. History of Present Illness History of Present Illness Chief Complaint: Suicidal ideation Narrative: This is a 34-year-old gentleman who disabled with depression and chronic disability and holding a job who reported to the ED being delivered by his mother who was concerned about him having increased suicidal ideation with multiple ways performing this action most of which he does not have access. It was mentioned he was thinking of carbon monoxide poisoning or shooting himself with patient not having a vehicle or firearms. He does drink 1/4 gallon of whiskey every other night to help with sleep and he does not take his medicines on the night he drinks but takes his medicine on the night he does not drink. He is very noncompliant with 1 of his medicines being clonidine which may cause rebound hypertension. In the ED his blood pressure was out of control and he was restarted on clonidine with slight decrease by the time he was delivered to the [facility] unit. He denies any headache or palpitations but states that he was scheduled to do a stress test in the near future though I am always stress I will not sure why they would do that. He appears to have poor insight into his medical care and talks mostly about insomnia and the need for THC to treat his insomnia rather than alcohol but he cannot afford medical marijuana. He does have good support at home with his and daughter and his mother is supportive being the one who brought him to the ED. He does become agitated and physically aggressive at times throwing objects but does not threaten his family. He feels financial stress receiving only his disability with his recently being denied disability. He has a 12-year-old daughter who lives at home with him. He was stated in the ED notes that he has had suicidal ideation since he was 4 years old. The patient is not forthcoming with other stressors but does admit to not drinking water and only drinking soda on the days that he is not drinking alcohol for sedation to sleep. Patient was evaluated by mental health and he is voluntarily admitted for inpatient psych care with placement possibly in the morning. He was medically cleared in the ED with chronic CKD and recurrent hypokalemia being problematic along with his uncontrolled blood pressure when he is not taking his medications. He does not have an IV but will be watched closely for alcohol withdrawal during his observation. He does not usually require treatment for alcohol withdrawal whenever he stops drinking. [facility] Medical History Alcohol abuse (Chronic) Anxiety and depression (Inactive) Bipolar disorder (Inactive) CKD (chronic kidney disease) stage 3, GFR 30-59 ml/min (Acute) Gout (Chronic) Hypokalemia (Chronic) Insomnia (Inactive) Surgical History History of hand surgery (Acute) History of oral surgery (Acute) Social History Smoking/Tobacco Use Status: Current every day Alcohol Intake: current Alcohol Intake frequency: a few times a week Drug use: Never Substance use type: does not use Do you feel safe at home: Yes Do you feel safe in your relationship?: Yes Meds Home Medications and Allergies Home Medications Medication Instructions Recorded Confirmed Type bupropion HCl [Wellbutrin XL] 300 mg PO HS 03/05/14 02/07/20 History quetiapine 400 mg PO HS 03/07/14 02/07/20 History lisinopril mg PO DAILY 10/12/19 History clonidine HCl 0.2 mg PO QHS 02/07/20 02/07/20 History Allergies Allergy/AdvReac Type Severity Reaction Status Date / Time dust AdvReac Mild get all Uncoded 02/07/20 19:24 stuffed up Exam Narrative Exam Narrative: General: Patient appears much older than stated age and is unkempt with long hair which is thinning and then unkempt long eisenberg. He is anxious but conversant with a monotonous tone and slowed speech, alert and oriented x3. HEENT: Normocephalic, eyes with pupils dilated but equal and reactive to light symmetrically, external ears normal, oropharynx with moist oral mucosa. Neck: Supple without JVD or auscultated bruits. Back: Stooped posture with no CVA tenderness. Lungs: Fair aeration and clear to auscultation percussion. The patient was tachypneic in the ED but normal respiration at the time of my exam. Heart: Regular rate and rhythm with no appreciable murmurs or gallops. He was tachycardic in the ED. Abdomen: Obese contour, soft and nontender to palpation with palpable liver in the right upper quadrant with smooth round edge. No palpable spleen. No palpable masses and bowel sounds are positive in all quadrants. No auscultated abdominal bruit. Genitalia/rectal: Exam deferred. Extremities: Peripheral pulses intact, no clubbing, cyanosis or pitting edema. No joint swelling with fair range of motion. Neuro: Cranial nerves II through XII grossly intact, motor and sensory grossly intact. Skin: Fair skinned with multiple freckles over sun exposed areas with patient being redheaded. No rashes. Warm and dry. Psych: Anxious with poor eye contact and hesitant in speech with avoidance of some conversation. Thought processes appear to be within normal limits except for patient at times ruminating over his stressors and answering questions inappropriately. Remote and recent memory appear to be intact. Mood depressed. Results Imaging Additional studies: TSH was normal at 1.87, magnesium normal at 2.1, pro time/INR was within normal limits at 11.4/1.1 Labs Result diagrams: 02/07/20 20:00 02/07/20 20:00 Labs: Laboratory Results - last 24 hr 02/07/20 02/07/20 02/07/20 19:50 20:00 20:00 WBC 5.03 RBC 4.97 Hgb 15.7 Hct 45.6 MCV 91.8 MCH 31.6 MCHC 34.4 RDW 15.4 H Plt Count 286 MPV 9.0 Immature Gran % 0.2 Neutrophils % 47.5 Lymphocytes % 42.7 Monocytes % 6.4 Eosinophils % 2.8 Basophils % 0.4 Absolute Neutrophils 2.39 Absolute Lymphocytes 2.15 Absolute Monocytes 0.32 Absolute Eosinophils 0.14 Absolute Basophils 0.02 Sodium 139 Potassium 2.9 L* Chloride 99 Carbon Dioxide 27.5 Anion Gap 12.5 H BUN 5 L Creatinine 1.37 H Estimated GFR/1.73 m2 59.48 Glucose 111 H Calcium 8.8 Total Bilirubin 0.7 AST 43 H ALT 35 Alkaline Phosphatase 274 H Total Protein 8.6 H Albumin 4.1 Urine Opiates Screen Negative Urine Methadone Screen Negative Ur Barbiturates Screen Negative Ur Tricyclics Screen Negative Ur Amphetamines Screen Negative U Benzodiazepines Scrn Negative Urine Cocaine Screen Negative Ur THC Screen Positive A Ethyl Alcohol 79.2 Last Vital Signs Temp 37.1 C 02/07/20 19:21 Pulse 89 02/07/20 21:38 Resp 25 H 02/07/20 19:21 BP 159/120 H 02/07/20 21:38 Pulse Ox 100 02/07/20 21:38 COVID-19 Screening In the past 14 days, have you traveled outside of [place]?: NO Had IN PERSON contact w/suspected or confirmed C-19 person: No
[2020-02-07 22:14] LABS: INR 1.1 (0.9-1.1); Prothrombin Time 11.4 sec (9.3-11.0)
[2020-02-07 22:20] VITALS: BP 179/132; PULSE 103; O2SAT 100
[2020-02-07 22:22] VITALS: BP 168/129; PULSE 102
[2020-02-07 22:41] LABS: Magnesium 2.1 mg/dL (1.8-2.4); TSH (W/Ref FT4) 1.87 uIU/mL (0.36-3.74)
[2020-02-07 23:40] VITALS: PULSE 100; TEMP 36.4; O2SAT 97
[2020-02-07 23:42] VITALS: BP 151/123; PULSE 114
[2020-02-07] MEDS: QUEtiapine 300 MG TAB PO (23:59)
[2020-02-07] MEDS: QUEtiapine 100 MG TAB PO (23:59)
[2020-02-08] VITALS (17 sets, daily range): BP systolic 103–164; BP diastolic 60–104; PULSE 60–125; RESP 18; TEMP 35.9–36.8; O2SAT 98
[2020-02-08] MEDS: cloNIDine 0.1 MG TAB 0.2 MG PO ×2 (00:20→22:32)
[2020-02-08 07:00] LABS: ALT 23 U/L (16-63); AST 32 U/L (15-37); Albumin 3.1 g/dL (3.4-5.0); Alkaline Phosphatase 217 U/L (46-116); Anion Gap 7.8 mmol/L (3-11); BUN 6 mg/dL (7-18); Bilirubin, Total 0.8 mg/dL (0.2-1.0); CO2 29.2 mmol/L (21.0-32.0); CREATININE 1.23 mg/dL (0.70-1.30); Calcium 8.1 mg/dL (8.5-10.1); Chloride 102 mmol/L (98-107); Glucose 104 mg/dL (74-106); Sodium 139 mmol/L (136-145); Total Protein 6.4 g/dL (6.4-8.2)
[2020-02-08 07:18] LABS: Potassium 2.7 mmol/L (3.5-5.1)
[2020-02-08] MEDS: Thiamine 100 MG TAB PO (08:30)
[2020-02-08] MEDS: Lisinopril 5 MG TAB 10 MG PO (08:30)
[2020-02-08] MEDS: Folic Acid 1 MG TAB PO (08:30)
[2020-02-08] MEDS: Potassium Chloride 20 MEQ TABCR 40 MEQ PO ×2 (08:30→18:11)
[2020-02-08] MEDS: Multivitamin TAB 1 TAB PO (08:30)
--- NOTE | 2020-02-08 08:34 | PDOC.CMSAFE ---
- If Service Date Differs Date of service: 02/08/20 Time of Service: 08:34 Care Management Safety Plan SAFETY PLAN: 02/08/2020 1. Will remain on suicide precautions. with one on one supervision. 2. Will remain under the direct supervision of one-on-one staff at all times provided by [employer]; JUKEBOX COIN COLLECTOR, FINISHING AND SHIPPING SUPERVISOR, inspector plug seam in the transition area. 3. Patient with remain on SI/HI precautions with paper plates, paper cups and cardboard spoon. Absolutely no sharp objects. 4. Follow [facility] Management of the Admitted Behavioral Health Patient policy. 5. Shower permitted per RN discretion with an escort to shower room. 6. No personal belongings at this time. 7. Visitors-None at this time 8. Activities: Television, paper, coloring and crayons. 9. Bathroom privileges without limitation. 10. Phone: with supervision at the discretion of primary care team and with supervision. 11. Due to VOLUNTARY status, if the patient wishes to leave [facility], the [facility] steamtable worker must be contacted to re-evaluate the patient before the patient exiting the building. Bed status [facility] is reviewing referral pending acceptance
--- NOTE | 2020-02-08 08:35 | CMPROGNOTE_ITS ---
- If Service Date Differs Date of service: 02/08/20 Time of Service: 08:35 Care Management Progress Note S/O:Yuri remains in the ICU at this time awaiting psychiatric placement for SI and HI. He exhibits a flat affect which resulted in minimal engagement with CM and [facility] crisis. CM reviewed plan with ICU primary care and with provider. No changes in the safety plan today, Yuri is not making any specific request and he continues to be willing to transfer for psychiatric care and stabilization. His blood pressure has improved per provider and he is medically stable for transfer. [facility] is considering, CM faxed all requested information to [facility] and awaiting review. Yuri was able to be screened by [facility] over the tablet. A:Yuri is a 34 year old male admitted overnight for SI and HI with a history of bipolar and depression. P; Psychiatric placement for stabilization referral pending at [facility] awaiting review. Anticipate he will be transferred down via brine well operator vs ambulance pending availability and continued [facility] assessment.
--- NOTE | 2020-02-08 08:35 | PDOC.CMPRO ---
- If Service Date Differs Date of service: 02/08/20 Time of Service: 08:35 Care Management Progress Note S/O:Yuri remains in the ICU at this time awaiting psychiatric placement for SI and HI. He exhibits a flat affect which resulted in minimal engagement with CM and [facility] crisis. CM reviewed plan with ICU primary care and with provider. No changes in the safety plan today, Yuri is not making any specific request and he continues to be willing to transfer for psychiatric care and stabilization. His blood pressure has improved per provider and he is medically stable for transfer. [facility] is considering, CM faxed all requested information to [facility] and awaiting review. Yuri was able to be screened by [facility] over the tablet. A:Yuri is a 34 year old male admitted overnight for SI and HI with a history of bipolar and depression. P; Psychiatric placement for stabilization referral pending at [facility] awaiting review. Anticipate he will be transferred down via frame opener vs ambulance pending availability and continued [facility] assessment.
--- NOTE | 2020-02-08 09:05 | PHA.REVIEW ---
Pharmacy Admission Review - Admission Clinical Review (Last Reviewed 02/07/20 @ 22:08 by Boby Cortes) Suicidal ideation (Acute) Noncompliance with medications (Acute) dust Adverse Reaction (Mild, Uncoded 02/07/20 19:24) get all stuffed up Height 5 ft 10 in Weight 93.1 kg - Comments Comments/Follow Ups: for suicidal ideation and on CIWA protocol. No IV access as he ws agitatd over night. Takes Clonidine intermittently and suffers from high and low BPs as a consquence. Potassium is low. (2.7) Getting PO supplementation. - Renal Dosing Renal Dosing: BUN 6 mg/dL (7-18) L 02/08/20 06:20 Creatinine 1.23 mg/dL (0.70-1.30) 02/08/20 06:20 Medications needing adjustments: Reviewed (est CrCl~ 85 mL/min Meds-[facility]) - Anticoagulation Anticoagulation: Hgb 15.7 g/dL (13.5-17.5) 02/07/20 20:00 Hct 45.6 % (40.0-50.0) 02/07/20 20:00 Plt Count 286 x1000/uL (130-400) 02/07/20 20:00 INR 1.1 (0.9-1.1) 02/07/20 20:00 Creatinine 1.23 mg/dL (0.70-1.30) 02/08/20 06:20 DVT Prohphylaxis: Reviewed (No DVT proph) Therapeutic Anticoagulation: N/A - Opiate Usage Evaluate Pain Scale/Pains Meds: N/A Scheduled Bowel Reg ordered if on Opiates?: Yes - Relevant Labs Sodium 139 mmol/L (136-145) 02/08/20 06:20 Potassium 2.7 mmol/L (3.5-5.1) L* 02/08/20 06:20 Chloride 102 mmol/L (98-107) 02/08/20 06:20 Magnesium 2.1 mg/dL (1.8-2.4) 02/07/20 20:00 Electrolytes, C-Reactive P, ESR: Reviewed (recieving po Potassium supplement) - DM Control DM Control: Glucose 104 mg/dL (74-106) 02/08/20 06:20 Insulin Dosing: N/A - Heart Failure/VT EF%, MAK's, B-Blockers, Diuretics: Reviewed (on Lisinopril, and Clonidine) - BP Control BP Control: Blood Pressure 107/60 Blood Pressure 103/81 Blood Pressure 141/94 Blood Pressure 158/104 Blood Pressure 151/123 Blood Pressure 168/129 Blood Pressure 179/132 Blood Pressure 159/120 If elevated: Reviewed (BPs are normalizing) - Qtc Review If Elevated: N/A - IV to PO Switch IV Medications: N/A - Home Meds Home Med List reviewed: Reviewed (home meds are orered) - Current meds Current Medication Order Review: Reviewed (curently on oral CIWA meds)
--- NOTE | 2020-02-08 11:38 | MHPN_ITS ---
Date of service: 02/08/20 Time of Service: 11:38 Mental Health Crisis Note Presenting Issue How did you arrive at the ED and why did you come: Client was brought to ED on 02/07/2020 after reports of SI. Precipitating Factors Client reports no SI or HI today. Client reported no change in thoughts since last night when he reported both SI and Hi. Client had reported SI everyday for the past 34 years. Disposition BEHAVIOR: indifferent, client is short in his responses when speaking to this senior writer EYE CONTACT: good MOOD: irritable AFFECT: flat and apathetic APPETITE: no appetite SLEEP(trouble falling/staying asleep: did not sleep well Plan tax accounting manager faxed all paperwork to [facility]. Client will remain at [facility] until placement is found. Signature Clinician's Name/Title: Karen Gavin [facility] Emergency Clinician
--- NOTE | 2020-02-08 12:20 | W.PM.DS.N ---
DS: Diagnosis Discharge Diagnosis (1) Suicidal ideation: Status: Acute (2) Hypertension: Status: Chronic (3) Alcohol abuse: Status: Chronic (4) Hypokalemia: Status: Chronic (5) CKD (chronic kidney disease) stage 3, GFR 30-59 ml/min: Status: Chronic Discharge Plan Disposition Condition: Stable Discharge Details Chief Complaint: PsychEval Clinical Impression: Suicidal ideation, Hypertension, Noncompliance with medications, Major depression Reason For Visit: SUICIDAL IDEATION, HTN Admit Date/Time: 02/07/20 21:52 Admit Provider: Boby Cortes Attending Provider: Boby Cortes Primary Care Provider: Tariq Lloyd ED Provider: Katiuska Christy Hospital Course Hospital Course: This is a 34 year old male with chronic disability, depression and Etoh abuse. He was brought to the ED by his mother with concerns of his increased suicidal ideations and homicidal ideations. He voiced ways he would kill himself but did not have the means to do so. He drinks 1/4 gallon of whiskey overy other night to help with sleep. He takes clonidine on the nights he doesn't drink. He also uses marijuana for sleep when he can afford it. On presentation his BP was elevated and received a total of 0.4mg po clonidine and his pressure normalized. He has been experiencing increased financial pressures. He is and has a 12 yo daughter. He was voluntarily admitted and evaluated by mental health. Placement is planned. He was medically cleared by ED. His K+ was low and recoreds indicate that this has been a previous issue and likely related to his Etoh abuse and poor nutritional intake. Oral K+ supplementation initiated. Home Meds and New Rx's Prescriptions: No Action bupropion HCl [Wellbutrin XL] 300 MG tablet extended release 24 hr 300 mg PO HS RF: 0 quetiapine 400 MG tablet 400 mg PO HS RF: 0 clonidine HCl 0.1 mg Tablet 0.2 mg PO QHS RF: 0 lisinopril 5 mg Tablet PO DAILY RF: 0 Discharge Instructions Activity:: Activity as Tolerated Diet:: As Tolerated Discharge Data Discharge Physician: Rajendra Roberts DS: Summary Status at Discharge Functional status at discharge: independent ambulation Overall status at discharge: patient is not back to baseline Mental Status: mental status grossly normal Speech and Movement: speech and movement normal Mood: dysthymic mood Affect: blunted Time Spent with Patient providing and/or coordinating discharge services: Greater than 30 minutes Exam Narrative Exam Narrative: Appears tired. Appears somewhat older than his age Const General: cooperative and no acute distress Orientation: alert and oriented x3 Eyes General: appearance normal, both eyes and all related structures Conjunctivae: conjunctivae normal Resp Effort & Inspection: normal respiratory effort Auscultation: clear to auscultation bilaterally Cardio Jugular venous pressure: no JVD Rate: tachycardic (Rate in the 90's) Rhythm: regular rhythm GI Palpation: soft and nontender Auscultation: normal bowel sounds Extrem General: no calf tenderness and no pedal edema Psych Appearance: grossly normal Mental Status: mental status grossly normal Speech and Movement: speech and movement normal Mood: dysthymic mood Affect: blunted Attitude: cooperative Thought Process: normal DS: Data Vitals/I&O Vitals and I&O: Vital Signs Temperature 35.9 C L 02/08/20 08:08 Temperature Source Temporal Artery Scan 02/08/20 08:08 Pulse 96 H 02/08/20 08:08 Respiratory Rate 18 02/08/20 08:08 Respiratory Effort Non-Labored 02/08/20 08:00 Respiratory Depth Normal 02/08/20 08:00 Respiratory Pattern Normal 02/08/20 08:00 Blood Pressure 107/60 02/08/20 08:08 Blood Pressure Mean 87 02/08/20 02:01 Blood Pressure Position Sitting 02/07/20 19:21 Pulse Oximetry 98 02/08/20 08:08 Oxygen Delivery Method Room Air 02/08/20 08:08 Oxygen Flow Rate 0 02/08/20 08:08 Intake & Output 02/07/20 02/08/20 02/08/20 23:59 11:59 23:59 Intake Total 720 / 720 Output Total 250 / 250 Balance 470 / 470 Weight 93.1 kg 93.1 kg Intake: Oral 720 / 720 Output: Urine 250 / 250 Other: Urine Color Dark Charline Urine Appearance Clear Urine Odor Normal Voiding Methods Urinal Data Completed and Pending Labs on day of discharge: Labs from last 24 hours 02/08/20 02/07/20 02/07/20 06:20 22:50 20:00 WBC RBC Hgb Hct MCV MCH MCHC RDW Plt Count MPV Immature Gran % Neutrophils % Lymphocytes % Monocytes % Eosinophils % Basophils % Absolute Neutrophils Absolute Lymphocytes Absolute Monocytes Absolute Eosinophils Absolute Basophils PT 11.4 H INR 1.1 Sodium 139 Potassium 2.7 L* Chloride 102 Carbon Dioxide 29.2 Anion Gap 7.8 BUN 6 L Creatinine 1.23 Estimated GFR/1.73 m2 >= 60.00 Glucose 104 Calcium 8.1 L Magnesium Total Bilirubin 0.8 AST 32 ALT 23 Alkaline Phosphatase 217 H Total Protein 6.4 Albumin 3.1 L TSH Urine Opiates Screen Urine Methadone Screen Ur Barbiturates Screen Ur Tricyclics Screen Ur Amphetamines Screen U Benzodiazepines Scrn Urine Cocaine Screen Ur THC Screen Ethyl Alcohol COVID-19 PCR Pending Nasopharyn COVID-19 PCR Pending Ref Test Perform Site Pending 02/07/20 02/07/20 02/07/20 20:00 20:00 20:00 WBC 5.03 RBC 4.97 Hgb 15.7 Hct 45.6 MCV 91.8 MCH 31.6 MCHC 34.4 RDW 15.4 H Plt Count 286 MPV 9.0 Immature Gran % 0.2 Neutrophils % 47.5 Lymphocytes % 42.7 Monocytes % 6.4 Eosinophils % 2.8 Basophils % 0.4 Absolute Neutrophils 2.39 Absolute Lymphocytes 2.15 Absolute Monocytes 0.32 Absolute Eosinophils 0.14 Absolute Basophils 0.02 PT INR Sodium 139 Potassium 2.9 L* Chloride 99 Carbon Dioxide 27.5 Anion Gap 12.5 H BUN 5 L Creatinine 1.37 H Estimated GFR/1.73 m2 59.48 Glucose 111 H Calcium 8.8 Magnesium 2.1 Total Bilirubin 0.7 AST 43 H ALT 35 Alkaline Phosphatase 274 H Total Protein 8.6 H Albumin 4.1 TSH 1.87 Urine Opiates Screen Urine Methadone Screen Ur Barbiturates Screen Ur Tricyclics Screen Ur Amphetamines Screen U Benzodiazepines Scrn Urine Cocaine Screen Ur THC Screen Ethyl Alcohol 79.2 COVID-19 PCR Nasopharyn COVID-19 PCR Ref Test Perform Site 02/07/20 19:50 WBC RBC Hgb Hct MCV MCH MCHC RDW Plt Count MPV Immature Gran % Neutrophils % Lymphocytes % Monocytes % Eosinophils % Basophils % Absolute Neutrophils Absolute Lymphocytes Absolute Monocytes Absolute Eosinophils Absolute Basophils PT INR Sodium Potassium Chloride Carbon Dioxide Anion Gap BUN Creatinine Estimated GFR/1.73 m2 Glucose Calcium Magnesium Total Bilirubin AST ALT Alkaline Phosphatase Total Protein Albumin TSH Urine Opiates Screen Negative Urine Methadone Screen Negative Ur Barbiturates Screen Negative Ur Tricyclics Screen Negative Ur Amphetamines Screen Negative U Benzodiazepines Scrn Negative Urine Cocaine Screen Negative Ur THC Screen Positive A Ethyl Alcohol COVID-19 PCR Nasopharyn COVID-19 PCR Ref Test Perform Site [facility] Medical History Alcohol abuse (Chronic) Anxiety and depression (Inactive) Bipolar disorder (Inactive) CKD (chronic kidney disease) stage 3, GFR 30-59 ml/min (Chronic) Gout (Chronic) Hypokalemia (Chronic) Insomnia (Inactive) Surgical History History of hand surgery (Acute) History of oral surgery (Acute) Social History Smoking/Tobacco Use Status: Current every day Alcohol Intake: current Alcohol Intake frequency: a few times a week Drug use: Never Substance use type: does not use Do you feel safe at home: Yes Do you feel safe in your relationship?: Yes
[2020-02-08 13:56] LABS: COVID-19 RT-PCR UVMMC Result Negative (Negative)
[2020-02-08] MEDS: QUEtiapine 300 MG TAB PO (22:32)
[2020-02-08] MEDS: buPROPion-XL 150 MG TABCR 300 MG PO ×2 (22:32)
[2020-02-08] MEDS: QUEtiapine 100 MG TAB PO (22:32)
[2020-02-09] VITALS (17 sets, daily range): BP systolic 124–153; BP diastolic 83–117; PULSE 0–99; RESP 18; TEMP 35.8–36.1; O2SAT 99
[2020-02-09 06:41] LABS: BUN 7 mg/dL (7-18); CREATININE 1.31 mg/dL (0.70-1.30); Calcium 8.6 mg/dL (8.5-10.1); Chloride 103 mmol/L (98-107); Glucose 102 mg/dL (74-106); Potassium 3.4 mmol/L (3.5-5.1); Sodium 139 mmol/L (136-145)
--- NOTE | 2020-02-09 07:30 | W.PM.PROGNOT ---
Date of Service Date of service: 02/08/20 Time of Service: 11:00 Assessment and Plan Assessment and plan (1) Alcohol abuse: Status: Chronic Assessment and plan: No withdrawal sxs. Waiting for dual treatment program acceptance (2) Hypokalemia: Status: Chronic Assessment and plan: Oral replacement. K in AM (3) CKD (chronic kidney disease) stage 3, GFR 30-59 ml/min: Status: Chronic Assessment and plan: Stable. Avoid dehydration and nephrotoxic agents. (4) Hypertension: Status: Chronic Assessment and plan: Improved after clonidine. Monitor Qualifiers: Hypertension type: essential hypertension Qualified Code(s): I10 - Essential (primary) hypertension (5) Major depression: Status: Chronic Assessment and plan: With SI. Waiting for dual program placement. Subjective Subjective Patient reports: no new complaints Interval history since last seen: Still fatigued Exam Neck Neck: full ROM and nontender Resp Effort & Inspection: normal respiratory effort Auscultation: clear to auscultation bilaterally Cardio Rate: regular rate Rhythm: regular rhythm Heart Sounds: S1 normal and S2 normal GI Palpation: soft and nontender Neuro General: patient alert and patient oriented x3 Cognition: normal cognition Speech: speech normal Extrem General: normal to inspection and no clubbing, cyanosis or edema Psych Appearance: grossly normal Mood: dysthymic mood Affect: dysphoric affect Objective Objective Clinical Data: Abnormal lab results 02/09/20 Range/Units 06:15 Potassium 3.4 L (3.5-5.1) mmol/L Creatinine 1.31 H (0.70-1.30) mg/dL Vital Signs Temperature 36.8 C 02/08/20 21:40 Temperature Source Temporal Artery Scan 02/08/20 21:40 Pulse 60 02/08/20 16:00 Pulse Rhythm Regular 02/09/20 01:33 Pulse 63 02/08/20 23:00 Respiratory Rate 18 02/08/20 16:00 Respiratory Effort Non-Labored 02/09/20 01:33 Respiratory Depth Normal 02/09/20 01:33 Respiratory Pattern Normal 02/09/20 01:33 Blood Pressure 164/96 H 02/08/20 21:40 Blood Pressure Mean 87 02/08/20 02:01 Blood Pressure Position Sitting 02/07/20 19:21 Pulse Oximetry 98 02/08/20 16:00 Oxygen Delivery Method Room Air 02/08/20 21:40 Oxygen Flow Rate 0 02/08/20 21:40 Intake & Output 02/08/20 02/08/20 02/09/20 11:59 23:59 11:59 Intake Total 720 / 1320 600 / 1320 350 / 350 Output Total 550 / 1100 550 / 1100 200 / 200 Balance 170 / 220 50 / 220 150 / 150 Weight 93.1 kg 92.8 kg Intake: Oral 720 / 1320 600 / 1320 350 / 350 Output: Urine 550 / 1100 550 / 1100 200 / 200 Other: Urine Color Dark Charline Light Charline Urine Appearance Clear Clear Clear Urine Odor Normal Stool Characteristics Formed Voiding Methods Urinal Laboratory Results WBC 5.03 k/cumm (4.4-10.8) 02/07/20 20:00 RBC 4.97 m/cumm (4.50-6.00) 02/07/20 20:00 Hgb 15.7 g/dL (13.5-17.5) 02/07/20 20:00 Hct 45.6 % (40.0-50.0) 02/07/20 20:00 MCV 91.8 fL (80-95) 02/07/20 20:00 MCH 31.6 pg (27.0-33.0) 02/07/20 20:00 MCHC 34.4 g/dL (32.0-36.0) 02/07/20 20:00 RDW 15.4 % (11.8-14.1) H 02/07/20 20:00 Plt Count 286 x1000/uL (130-400) 02/07/20 20:00 MPV 9.0 fL (8.0-11.0) 02/07/20 20:00 Immature Gran % 0.2 % 02/07/20 20:00 Neutrophils % 47.5 02/07/20 20:00 Lymphocytes % 42.7 02/07/20 20:00 Monocytes % 6.4 02/07/20 20:00 Eosinophils % 2.8 02/07/20 20:00 Basophils % 0.4 02/07/20 20:00 Absolute Neutrophils 2.39 k/cumm (1.2-6.7) 02/07/20 20:00 Absolute Lymphocytes 2.15 k/cumm (1.2-3.4) 02/07/20 20:00 Absolute Monocytes 0.32 k/cumm (0.11-0.7) 02/07/20 20:00 Absolute Eosinophils 0.14 k/cumm (0.0-0.7) 02/07/20 20:00 Absolute Basophils 0.02 k/cumm (0.0-0.2) 02/07/20 20:00 PT 11.4 sec (9.3-11.0) H 02/07/20 20:00 INR 1.1 (0.9-1.1) 02/07/20 20:00 Sodium 139 mmol/L (136-145) 02/09/20 06:15 Potassium 3.4 mmol/L (3.5-5.1) L 02/09/20 06:15 Chloride 103 mmol/L (98-107) 02/09/20 06:15 Carbon Dioxide 31.0 mmol/L (21.0-32.0) 02/09/20 06:15 Anion Gap 5.0 mmol/L (3-11) 02/09/20 06:15 BUN 7 mg/dL (7-18) 02/09/20 06:15 Creatinine 1.31 mg/dL (0.70-1.30) H 02/09/20 06:15 Estimated GFR/1.73 m2 >= 60.00 (mL/min/1.73m2) 02/09/20 06:15 Glucose 102 mg/dL (74-106) 02/09/20 06:15 Calcium 8.6 mg/dL (8.5-10.1) 02/09/20 06:15 Magnesium 2.1 mg/dL (1.8-2.4) 02/07/20 20:00 Total Bilirubin 0.8 mg/dL (0.2-1.0) 02/08/20 06:20 AST 32 U/L (15-37) 02/08/20 06:20 ALT 23 U/L (16-63) 02/08/20 06:20 Alkaline Phosphatase 217 U/L (46-116) H 02/08/20 06:20 Total Protein 6.4 g/dL (6.4-8.2) 02/08/20 06:20 Albumin 3.1 g/dL (3.4-5.0) L 02/08/20 06:20 TSH 1.87 uIU/mL (0.36-3.74) 02/07/20 20:00 Urine Opiates Screen Negative (Negative) 02/07/20 19:50 Urine Methadone Screen Negative (Negative) 02/07/20 19:50 Ur Barbiturates Screen Negative (Negative) 02/07/20 19:50 Ur Tricyclics Screen Negative (Negative) 02/07/20 19:50 Ur Amphetamines Screen Negative (Negative) 02/07/20 19:50 U Benzodiazepines Scrn Negative (Negative) 02/07/20 19:50 Urine Cocaine Screen Negative (Negative) 02/07/20 19:50 Ur THC Screen Positive (Negative) A 02/07/20 19:50 Ethyl Alcohol 79.2 mg/dL (<3) 02/07/20 20:00 COVID-19 PCR Negative (Negative) 02/07/20 22:50 Nasopharyn COVID-19 PCR Not Applicable 02/07/20 22:50 Ref Test Perform Site [place] [facility] 02/07/20 22:50
[2020-02-09] MEDS: Folic Acid 1 MG TAB PO (08:18)
[2020-02-09] MEDS: Thiamine 100 MG TAB PO (08:18)
[2020-02-09] MEDS: Lisinopril 5 MG TAB 10 MG PO (08:19)
[2020-02-09] MEDS: Multivitamin TAB 1 TAB PO (08:19)
[2020-02-09] MEDS: Potassium Chloride 20 MEQ TABCR 40 MEQ PO ×3 (08:19→18:11)
[2020-02-09] MEDS: cloNIDine 0.1 MG TAB 0.2 MG PO ×2 (08:56→20:45)
--- NOTE | 2020-02-09 09:09 | CMSP_ITS ---
- If Service Date Differs Date of service: 02/09/20 Time of Service: 09:10 Care Management Safety Plan SAFETY PLAN: 02/09/2020 1. Will remain on suicide precautions. with one on one supervision. 2. Will remain under the direct supervision of one-on-one staff at all times provided by [employer]; LEILA, SECURITY OPERATIONS CENTER ANALYST, sprinkler worker in the transition area. 3. Patient with remain on SI/HI precautions with paper plates, paper cups and cardboard spoon. Absolutely no sharp objects. 4. Follow [facility] Management of the Admitted Behavioral Health Patient policy. 5. Shower permitted per RN discretion with an escort to shower room. 6. No personal belongings at this time. 7. Visitors-None at this time 8. Activities: Television, paper, coloring and crayons. 9. Bathroom privileges without limitation. 10. Phone: with supervision at the discretion of primary care team and with supervision. 11. Due to VOLUNTARY status, if the patient wishes to leave [facility], the [facility] automotive worker foreman must be contacted to re-evaluate the patient before the patient exiting the building.
--- NOTE | 2020-02-09 09:43 | W.PM.PROGNOT ---
Date of Service Date of service: 02/09/20 Time of Service: 09:45 Assessment and Plan Assessment and plan (1) Alcohol abuse: Status: Chronic Assessment and plan: No bed availability today for dual program placement. Cont to monitor with 1 on 1. No S/S of withdrawal. (2) Hypokalemia: Status: Chronic Assessment and plan: K+ now 3.4. Cont supplementation and monitoring. (3) Suicidal ideation: Status: Acute (4) Hypertension: Status: Chronic Assessment and plan: Did not receive the scheduled clonidine last PM. SBP [id number] this AM Change clonidine to BID dosing. Monitor Qualifiers: Hypertension type: essential hypertension Qualified Code(s): I10 - Essential (primary) hypertension (5) Major depression: Status: Chronic Assessment and plan: Dual program placement when bed available. Stable. He feels he needs to be here; conts to be voluntary. Subjective Subjective Patient reports: no new complaints and feels better Interval history since last seen: Still tired but did sleep better Exam Resp Effort & Inspection: normal respiratory effort Auscultation: clear to auscultation bilaterally Cardio Rate: regular rate Rhythm: regular rhythm Heart Sounds: S1 normal and S2 normal GI Palpation: soft and nontender Auscultation: normal bowel sounds Skin General skin exam: no rashes or lesions noted Psych Appearance: grossly normal Speech and Movement: speech and movement normal Mood: euthymic mood Affect: blunted Attitude: cooperative Objective Objective Clinical Data: Abnormal lab results 02/09/20 Range/Units 06:15 Potassium 3.4 L (3.5-5.1) mmol/L Creatinine 1.31 H (0.70-1.30) mg/dL Vital Signs Temperature 36 C L 02/09/20 07:56 Temperature Source Temporal Artery Scan 02/08/20 21:40 Pulse 90 02/09/20 07:56 Pulse Rhythm Regular 02/09/20 08:30 Pulse 99 H 02/09/20 08:00 Respiratory Rate 18 02/09/20 07:56 Respiratory Effort Non-Labored 02/09/20 08:30 Respiratory Depth Normal 02/09/20 08:30 Respiratory Pattern Normal 02/09/20 08:30 Blood Pressure 148/97 H 02/09/20 07:56 Blood Pressure Mean 87 02/08/20 02:01 Blood Pressure Position Sitting 02/07/20 19:21 Pulse Oximetry 98 02/08/20 16:00 Oxygen Delivery Method Room Air 02/09/20 07:56 Oxygen Flow Rate 0 02/09/20 07:56 Intake & Output 02/08/20 02/08/20 02/09/20 11:59 23:59 11:59 Intake Total 720 / 1320 600 / 1320 350 / 350 Output Total 550 / 1100 550 / 1100 200 / 200 Balance 170 / 220 50 / 220 150 / 150 Weight 93.1 kg 92.8 kg Intake: Oral 720 / 1320 600 / 1320 350 / 350 Output: Urine 550 / 1100 550 / 1100 200 / 200 Other: Urine Color Dark Charline Light Charline Urine Appearance Clear Clear Clear Urine Odor Normal Stool Characteristics Formed Voiding Methods Urinal Laboratory Results WBC 5.03 k/cumm (4.4-10.8) 02/07/20 20:00 RBC 4.97 m/cumm (4.50-6.00) 02/07/20 20:00 Hgb 15.7 g/dL (13.5-17.5) 02/07/20 20:00 Hct 45.6 % (40.0-50.0) 02/07/20 20:00 MCV 91.8 fL (80-95) 02/07/20 20:00 MCH 31.6 pg (27.0-33.0) 02/07/20 20:00 MCHC 34.4 g/dL (32.0-36.0) 02/07/20 20:00 RDW 15.4 % (11.8-14.1) H 02/07/20 20:00 Plt Count 286 x1000/uL (130-400) 02/07/20 20:00 MPV 9.0 fL (8.0-11.0) 02/07/20 20:00 Immature Gran % 0.2 % 02/07/20 20:00 Neutrophils % 47.5 02/07/20 20:00 Lymphocytes % 42.7 02/07/20 20:00 Monocytes % 6.4 02/07/20 20:00 Eosinophils % 2.8 02/07/20 20:00 Basophils % 0.4 02/07/20 20:00 Absolute Neutrophils 2.39 k/cumm (1.2-6.7) 02/07/20 20:00 Absolute Lymphocytes 2.15 k/cumm (1.2-3.4) 02/07/20 20:00 Absolute Monocytes 0.32 k/cumm (0.11-0.7) 02/07/20 20:00 Absolute Eosinophils 0.14 k/cumm (0.0-0.7) 02/07/20 20:00 Absolute Basophils 0.02 k/cumm (0.0-0.2) 02/07/20 20:00 PT 11.4 sec (9.3-11.0) H 02/07/20 20:00 INR 1.1 (0.9-1.1) 02/07/20 20:00 Sodium 139 mmol/L (136-145) 02/09/20 06:15 Potassium 3.4 mmol/L (3.5-5.1) L 02/09/20 06:15 Chloride 103 mmol/L (98-107) 02/09/20 06:15 Carbon Dioxide 31.0 mmol/L (21.0-32.0) 02/09/20 06:15 Anion Gap 5.0 mmol/L (3-11) 02/09/20 06:15 BUN 7 mg/dL (7-18) 02/09/20 06:15 Creatinine 1.31 mg/dL (0.70-1.30) H 02/09/20 06:15 Estimated GFR/1.73 m2 >= 60.00 (mL/min/1.73m2) 02/09/20 06:15 Glucose 102 mg/dL (74-106) 02/09/20 06:15 Calcium 8.6 mg/dL (8.5-10.1) 02/09/20 06:15 Magnesium 2.1 mg/dL (1.8-2.4) 02/07/20 20:00 Total Bilirubin 0.8 mg/dL (0.2-1.0) 02/08/20 06:20 AST 32 U/L (15-37) 02/08/20 06:20 ALT 23 U/L (16-63) 02/08/20 06:20 Alkaline Phosphatase 217 U/L (46-116) H 02/08/20 06:20 Total Protein 6.4 g/dL (6.4-8.2) 02/08/20 06:20 Albumin 3.1 g/dL (3.4-5.0) L 02/08/20 06:20 TSH 1.87 uIU/mL (0.36-3.74) 02/07/20 20:00 Urine Opiates Screen Negative (Negative) 02/07/20 19:50 Urine Methadone Screen Negative (Negative) 02/07/20 19:50 Ur Barbiturates Screen Negative (Negative) 02/07/20 19:50 Ur Tricyclics Screen Negative (Negative) 02/07/20 19:50 Ur Amphetamines Screen Negative (Negative) 02/07/20 19:50 U Benzodiazepines Scrn Negative (Negative) 02/07/20 19:50 Urine Cocaine Screen Negative (Negative) 02/07/20 19:50 Ur THC Screen Positive (Negative) A 02/07/20 19:50 Ethyl Alcohol 79.2 mg/dL (<3) 02/07/20 20:00 COVID-19 PCR Negative (Negative) 02/07/20 22:50 Nasopharyn COVID-19 PCR Not Applicable 02/07/20 22:50 Ref Test Perform Site [facility] 02/07/20 22:50
--- NOTE | 2020-02-09 12:31 | CMPROGNOTE_ITS ---
- If Service Date Differs Date of service: 02/09/20 Time of Service: 12:31 Care Management Progress Note S/O: Yuri remains in the ICU awaiting placement at a psychiatric facility. Per report he has been corporative, he was more animated today and was able to engage with [facility] crisis assessment today. He feels that he needs inpatient treatment and is willing to remain voluntary at this time. CM faxed referrals to all [place] hospitals, status pending review. CM has reviewed the plan with [facility] and will continue to provide support to patient while awaiting placement. A: Yuri is a 34 year old male awaiting transfer to a psychiatric facility when bed is available. CM notified Department of mental health of patients status and reviewed bed status with [facility]. P: Transfer to psychiatric stabilization when a bed becomes available. Bed status referrals faxed to all [facility] with psychiatric facilities. Transportation to be provided by psychiatric coordinated by [facility].
--- NOTE | 2020-02-09 13:16 | PDOC.MHCN_ITS ---
Date of service: 02/09/20 Time of Service: 11:16 Mental Health Crisis Note Presenting Issue How did you arrive at the ED and why did you come: Client was brought to the ED on 02/07/2020 by his mother after reports of SI. Precipitating Factors Client reports no SI or HI. Client reports that he is hoping to get results after inpatient treatment. Disposition BEHAVIOR: Client is more receptive when speaking with this comic writer today. He reported that he is hoping to have some results after inpatient treatment. When asked how client was feeling today he reported well, I'm still here EYE CONTACT: Client has some eye contact when speaking to this comic writer. MOOD: Clients mood is apathetic. AFFECT: flat APPETITE: Client reported that his appetite is as well as it could be, but he was looking forward to lunch. SLEEP(trouble falling/staying asleep: Client reported falling asleep at 4am, wa marco up at 5am and been awake since. Plan Client will remain at [facility] awaiting inpatient treatment. All hospitals were faxed the paperwork and [facility] have been notified of the status of the client. Signature Clinician's Name/Title: Karen Gavin [facility] Emergency Clinician
[2020-02-09] MEDS: buPROPion-XL 150 MG TABCR 300 MG PO (22:36)
[2020-02-09] MEDS: QUEtiapine 300 MG TAB PO (22:36)
[2020-02-09] MEDS: QUEtiapine 100 MG TAB PO (22:36)
[2020-02-10 08:11] VITALS: BP 152/106; PULSE 67
[2020-02-10 08:13] VITALS: BP 137/108; PULSE 63
[2020-02-10 08:14] VITALS: BP 136/108; PULSE 64
[2020-02-10 08:16] VITALS: BP 152/106; PULSE 67
[2020-02-10] MEDS: Multivitamin TAB 1 TAB PO (08:22)
[2020-02-10] MEDS: Lisinopril 5 MG TAB 10 MG PO (08:22)
[2020-02-10] MEDS: Folic Acid 1 MG TAB PO (08:22)
[2020-02-10] MEDS: cloNIDine 0.1 MG TAB 0.2 MG PO (08:22)
[2020-02-10] MEDS: Thiamine 100 MG TAB PO (08:22)
[2020-02-10] MEDS: Potassium Chloride 20 MEQ TABCR 40 MEQ PO (08:23)
[2020-02-10 08:30] VITALS: RESP 16; TEMP 36
--- NOTE | 2020-02-10 10:34 | W.PM.DS.N ---
Date of service: 02/10/20 Time of Service: 10:36 DS: Diagnosis Discharge Diagnosis (1) Alcohol abuse: Start date: 02/10/20 Start time: 10:36 Status: Chronic Asessment and Plan: Follow up as outpatient for sobriety program, no s/s w/drawal (2) Hypokalemia: Start date: 02/10/20 Start time: 10:36 Status: Chronic Asessment and Plan: Continue supplementation (3) Suicidal ideation: Start date: 02/10/20 Start time: 10:37 Status: Acute Asessment and Plan: Not having thoughts of harming himself. Will be discharged home with psychiatry appt tomorrow at 10 am (4) Hypertension: Start date: 02/10/20 Start time: 10:37 Status: Chronic Asessment and Plan: continue outpatient medication and stop alcohol (5) Major depression: Start date: 02/10/20 Start time: 10:38 Status: Chronic Asessment and Plan: See above Above case discussed with Dr. Plaza who is in agreement. Discharge Plan Disposition Patient Disposition: HOME Condition: Stable Discharge Details Chief Complaint: PsychEval Clinical Impression: Suicidal ideation, Hypertension, Noncompliance with medications, Major depression Reason For Visit: SUICIDAL IDEATION, HTN Admit Date/Time: 02/07/20 21:52 Admit Provider: Boby Cortes Attending Provider: Boby Cortes Primary Care Provider: Tariq Lloyd ED Provider: Katiuska Christy Hospital Course Hospital Course: This is a 34 year old male with chronic disability, depression and Etoh abuse. He was brought to the ED by his mother with concerns of his increased suicidal ideations and homicidal ideations. He voiced ways he would kill himself but did not have the means to do so. He drinks 1/4 gallon of whiskey overy other night to help with sleep. He takes clonidine on the nights he doesn't drink. He also uses marijuana for sleep when he can afford it. On presentation his BP was elevated and received a total of 0.4mg po clonidine and his pressure normalized. He has been experiencing increased financial pressures. He is and has a 12 yo daughter. He was voluntarily admitted and evaluated by mental health. Placement is planned. He was medically cleared by ED. His K+ was low and recoreds indicate that this has been a previous issue and likely related to his Etoh abuse and poor nutritional intake. Oral K+ supplementation initiated. has cleared thim for discharge home and follow up with psychiatry for ruby at 1030. He denies SI/HI CP, SOB, N/V?D. Home Meds and New Rx's Prescriptions: New clonidine HCl [Catapres] 0.1 mg Tablet 0.2 mg PO BID Qty: 20 RF: 0 potassium chloride [Klor-Con M20] 20 mEq Tablet,Er Particles/Crystals 40 meq PO BID PC Qty: 20 RF: 0 lisinopril 5 mg Tablet 10 mg PO DAILY Qty: 20 RF: 0 Continued bupropion HCl [Wellbutrin XL] 300 MG tablet extended release 24 hr 300 mg PO HS RF: 0 quetiapine 400 MG tablet 400 mg PO HS RF: 0 Discontinued clonidine HCl 0.1 mg Tablet 0.2 mg PO QHS RF: 0 lisinopril 5 mg Tablet PO DAILY RF: 0 Discharge Instructions Instructions: Hypokalemia (DC), Depression (DC), Help Prevent Suicide (DC), Hypertension (DC), Suicide Prevention (DC) Additional Instructions: Follow up with psychiatry at 1030 in the morning. Stop drinking Take all medications as prescribed You have been placed on potassium pills twice a day and your bp pressue pills have been increased. to twice a day for clonidine and 10 mg from 5 mg for lisinopril. Activity:: Activity as Tolerated Equipment/Supplies:: No Equipment Needed Diet:: As Tolerated Discharge Orders Discharge Orders: Discharge Order (Routine); Ordered 02/10/20 Ordered By: Suzi Barker DS: Summary Status at Discharge Functional status at discharge: independent ambulation Overall status at discharge: patient is back to baseline Mental Status: mental status grossly normal Speech and Movement: speech and movement normal Mood: dysthymic mood and euthymic mood Affect: dysphoric affect and blunted Exam Narrative Exam Narrative: Appears tired. Appears somewhat older than his age Const General: cooperative and no acute distress Orientation: alert and oriented x3 Eyes General: appearance normal, both eyes and all related structures Conjunctivae: conjunctivae normal Neck Neck: full ROM and nontender Resp Effort & Inspection: normal respiratory effort Auscultation: clear to auscultation bilaterally Cardio Jugular venous pressure: no JVD Rate: regular rate and tachycardic (Rate in the 90's) Rhythm: regular rhythm Heart Sounds: S1 normal and S2 normal GI Palpation: soft and nontender Auscultation: normal bowel sounds Skin General skin exam: no rashes or lesions noted Neuro General: patient alert and patient oriented x3 Cognition: normal cognition Speech: speech normal Extrem General: normal to inspection, no clubbing, cyanosis or edema, no calf tenderness and no pedal edema Psych Appearance: grossly normal Mental Status: mental status grossly normal Speech and Movement: speech and movement normal Mood: dysthymic mood and euthymic mood Affect: dysphoric affect and blunted Attitude: cooperative Thought Process: normal DS: Data Vitals/I&O Vitals and I&O: Vital Signs Temperature 36.1 C L 02/09/20 20:30 Temperature Source Tympanic 02/09/20 20:30 Pulse 67 02/10/20 08:16 Pulse Rhythm Regular 02/10/20 08:15 Pulse 96 H 02/09/20 09:00 Respiratory Rate 18 02/09/20 07:56 Respiratory Effort 02/10/20 08:15 Respiratory Depth Normal 02/10/20 08:15 Respiratory Pattern Normal 02/10/20 08:15 Blood Pressure 152/106 H 02/10/20 08:16 Blood Pressure Mean 118 02/10/20 08:16 Blood Pressure Position Sitting 02/07/20 19:21 Pulse Oximetry 99 02/09/20 20:41 Oxygen Delivery Method Room Air 02/09/20 20:30 Oxygen Flow Rate 0 02/09/20 20:30 Pain Level 0 02/09/20 20:30 Intake & Output 02/09/20 02/09/20 02/10/20 11:59 23:59 11:59 Intake Total 350 / 950 600 / 950 Output Total 200 / 1350 1150 / 1350 300 / 300 Balance 150 / -400 -550 / -400 -300 / -300 Weight 92.8 kg Intake: Oral 350 / 950 600 / 950 Output: Urine 200 / 1350 1150 / 1350 300 / 300 Other: Urine Color Yellow Yellow Urine Appearance Clear Clear Clear Urine Odor None Normal Voiding Methods Urinal Urinal [facility] Medical History Alcohol abuse (Chronic) Anxiety and depression (Inactive) Bipolar disorder (Inactive) CKD (chronic kidney disease) stage 3, GFR 30-59 ml/min (Chronic) Gout (Chronic) Hypokalemia (Chronic) Insomnia (Inactive) Surgical History History of hand surgery (Acute) History of oral surgery (Acute) Social History Smoking/Tobacco Use Status: Current every day Alcohol Intake: current Alcohol Intake frequency: a few times a week Drug use: Never Substance use type: does not use Do you feel safe at home: Yes Do you feel safe in your relationship?: Yes
--- NOTE | 2020-02-10 11:31 | MHPN_ITS ---
Date of service: 02/10/20 Time of Service: 11:31 Mental Health Crisis Note Presenting Issue How did you arrive at the ED and why did you come: Yuri arrived to ther ER via his mother with SI. He also was suggested by his counselor to go to the ER. Precipitating Factors Yuri is upbeat and positive this am. He denied SI and HI rating his SI at a 0 on a scale of 0-10. He is not showing any signs of delusions. Disposition BEHAVIOR: Yuri is upbeat and engaged in the interview. He is showing good insight and judgment. Yuri engaged in the safety plan for d/c today with f/u by [facility]. EYE CONTACT: Yuri makes good eye contact and is consistent throughout the interview. MOOD: Yuri still presents moderately depressed and is willing to engage with providers to discuss options for a non federally funded office who can prescribe medical marijuana. AFFECT: Maria Ls affect is flat mostly. APPETITE: Yuri reports his appetite is good except when he drinks. SLEEP(trouble falling/staying asleep: Yuri reported that his sleep is not good unless he is smoking marijuana or drinking ETOH. Plan Yuri agrees to speak wiht his PCP and personal care assistant about possible offices who may be able to support his need. He also agrees to an appointment with his PMHNP at 10 tomorrow which changed to 8:30 after we met and this was shared with personal care assistant to relay to him. It will also be reminded to him during our check in call today once he is home. Yuri agrees to turn over his ETOH to his parents. This information was shared with verbal consent to his mother. Signature Clinician's Name/Title: Renetta Granados MS, [facility] Emergency Services Clinician
--- NOTE | 2020-02-10 11:57 | CMDISCH_ITS ---
- If Service Date Differs Date of service: 02/10/20 Time of Service: 11:57 LACE Index Scoring Tool - Questions: Length of Stay (in days): 3 Acuity (Admit via E.D.?): Yes Care Management Discharge Reason for Hospitalization: SI, HTN Discharge Plan: Yuri will be discharged today he will have an appointment with his med provider at [facility] 0830 on Monday. Yuri makes good eye contact he states his mental health feels improved since admission. Yuri states that he has good support from his parents. His Dad will transport him home today and plan to pick him up at 1300. [facility] will follow up with him this afternoon. Yuri states that this is a good plan for him he was able to engaged for a prolonged period with [facility] over televisit. CM has reviewed with the provider who is in agreement with the plan. Please see mental health for additional information. Patient/Family Education Needs: Discharge plan, limitations and follow up plan with mental health service. Self care and resources in the community including crisis. - MH Services (Omit if N/A) Current MH Services: [facility]
== END 2020-02-10 13:30 | disposition home or self-care (01) ==
LOC: ER 22:33 → ICU 23:33
PROVIDERS: Admitting Provider Family Medicine; Emergency Provider Physician Assistant; PCP Nurse Practitioner Family; Visit Provider Family Medicine
DX: F32.9 Major depressive disorder, single episode, unspecified (principal); R45.851 Suicidal ideations; F10.10 Alcohol abuse, uncomplicated; E87.6 Hypokalemia; I10 Essential (primary) hypertension; Z91.14 Patient's other noncompliance with medication regimen; Z59.6 Low income; N18.3 Chronic kidney disease, stage 3 (moderate); Z03.818 Encounter for observation for suspected exposure to other biological agents ruled out; G47.00 Insomnia, unspecified; Z75.1 Person awaiting admission to adequate facility elsewhere
CPT/HCPCS: 36415; 80048; 80053; 80307; 99220; 99232; 99239; 99285; U0003; 80320; 83735; 84443; 85025; 85610; 99217; 99225; 99284; G0378

== ENCOUNTER 2020-06-23 08:02 | Emergency (ER) | payer MEDICAID, SELFPAY ==
[2020-06-23 08:07] VITALS: BP 160/111; PULSE 138; RESP 20; TEMP 36.2; O2SAT 97
--- NOTE | 2020-06-23 08:09 | W.ED.GENAD ---
Discharge Plan Disposition Patient Disposition: HOME Condition: Stable Discharge Details Clinical Impression: Depression, Boxer's fracture, Alcohol use Primary Care Provider: Tariq Lloyd ED Provider: Laz Suárez Home Meds and New Rx's Prescriptions: Continued bupropion HCl [Wellbutrin XL] 300 MG tablet extended release 24 hr 300 mg PO HS RF: 0 quetiapine 400 MG tablet 400 mg PO HS RF: 0 clonidine HCl [Catapres] 0.1 mg Tablet 0.2 mg PO BID Qty: 20 RF: 0 lisinopril 5 mg Tablet 10 mg PO DAILY Qty: 20 RF: 0 melatonin 10 mg capsule 10 mg PO HS RF: 0 Discharge Instructions Instructions: Depression (ED), Boxer Fracture (ED) Additional Instructions: At this time you were offered a medical screening examination. We were pending your alcohol level trending downward so that you could have a mental health evaluation. You are now requesting discharge and deny any suicidal or homicidal ideation. You feel safe. I have placed you on the care management list to help expedite outpatient mental health evaluation. There was a question of a boxer's fracture on the hand x-ray. I do recommend that you wear the splint until reevaluation with orthopedics sometime in the next week. Rest, elevate, cool compresses every 2 hours for 20 minutes. Please watch for new or worsening symptoms and return to the ER for any concerns. I have given you the name and number of our orthopedic provider. Referrals: Jono Lewis MD [ [facility]] - Medical Decision Making 35-year-old gentleman presents to the ER reporting vague suicidal ideation he does not want to act upon. He has not taken his medication over 36 hours, drink 15 beers overnight. Patient denies ever having tried to harm himself in the past. He reports that his stressors are primarily finances and his family. He did strike a wall this morning, his only medical complaint at this time is that of right hand pain. Will obtain right hand x-ray. Will obtain IV access, give IV fluid, Zofran was offered but declined. Will obtain laboratory values for a medical screening examination. Patient is currently cooperative. Will request a mental health screening, safety plan, and a CPSO. Repeat vital signs reveal blood pressure trending downward 154/101. Pulse 113. X-ray read by radiology as question on one view of an acute fracture or a previous boxer's fracture. Clinically patient is tender over this point. Will place into a premade boxer splint and have him follow-up with orthopedics. Laboratory values do not reveal any obvious emergent process. Creatinine is 1.62 with a GFR of 48.73. He was given a second liter IV fluid. TSH was 4.91, THC screen positive. Alcohol 180. Vital signs continue to trend downward, blood pressure in the 130s over 90s, heart rate in the 90s. Patient ate lunch without difficulty. He has remained cooperative under my care. Patient was observed in the ER for over 5 hours. Patient reports that he is becoming impatient and does not want to wait for mental health. Patient is currently denying any suicidal or homicidal ideations. He states that he never wants wanted to physically harm himself and that he was here at the request of his family. He reports that he feels safe and will would request to be discharged at this time. He feels as though he could talk with mental health as an outpatient, does not feel as though hospitalization is required. Again he feels safe, denies any suicidal or homicidal ideation. I did have the patient's RN have a similar conversation, he again denies any suicidal or homicidal ideations. At this time patient is awake, alert, oriented x3, has insight, and appears clinically sober. He has capacity to make his own decisions. I cannot hold the patient here against his will. I did place him on the care management list to help expedite outpatient mental health evaluation. He was encouraged to return to the ER for new or worsening symptoms. He was also given an orthopedic referral. Upon discharge patient has no additional questions or concerns. Medical Records Medical records reviewed: Yes I reviewed the patient's medical records. Lab Data Lab results reviewed: Yes I reviewed the patient's lab results. Lab results narrative: Laboratory Tests Range/Units 06/23/20 06/23/20 06/23/20 08:50 08:50 08:50 WBC (4.4-10.8) 10^3/uL 6.38 RBC (4.36-5.78) 10^6/uL 4.84 Hgb (13.5-17.5) g/dL 15.4 Hct (40.0-50.0) % 43.7 MCV (80-95) fL 90.3 MCH (27.0-33.0) pg 31.8 MCHC (32.0-36.0) % 35.2 RDW (11.8-14.1) % 12.0 Plt Count (130-400) 10^3/uL 274 MPV (8.0-11.0) fL 9.1 Immature Gran % 1.4 Neutrophils % 51.2 Lymphocytes % 33.7 Monocytes % 6.6 Eosinophils % 6.6 Basophils % 0.5 Nucleated RBC % % 0 Absolute Neutrophils (1.2-6.7) 10^3/uL 3.27 Absolute Lymphocytes (1.2-3.4) 10^3/uL 2.15 Absolute Monocytes (0.1-0.8) 10^3/uL 0.42 Absolute Eosinophils (0.0-0.7) 10^3/uL 0.42 Absolute Basophils (0.0-0.2) 10^3/uL 0.03 Sodium (136-145) mmol/L 136 Potassium (3.5-5.1) mmol/L 3.9 Chloride (98-107) mmol/L 99 Carbon Dioxide (21.0-32.0) mmol/L 19.7 L Anion Gap (3-11) mmol/L 17.3 H BUN (7-18) mg/dL 8 Creatinine (0.70-1.30) mg/dL 1.62 H Estimated GFR/1.73 m2 (mL/min/1.73m2) 48.73 Glucose (74-106) mg/dL 97 Calcium (8.5-10.1) mg/dL 8.9 Total Bilirubin (0.2-1.0) mg/dL 0.4 AST (15-37) U/L 36 ALT (16-63) U/L 38 Alkaline Phosphatase (46-116) U/L 139 H Total Protein (6.4-8.2) g/dL 8.2 Albumin (3.4-5.0) g/dL 4.1 TSH (0.36-3.74) uIU/mL 4.91 H Urine Color (Yellow) Urine Clarity (Clear) Urine pH (5-8) Ur Specific [place] (1.005-1.025) Urine Protein (Negative) mg/dL Urine Ketones (Negative) mg/dL Urine Blood (Negative) Urine Nitrite (Negative) Urine Bilirubin (Negative) Urine Urobilinogen (Up TO 0.2) EU/dL Ur Leukocyte Esterase (Negative) Urine Glucose (Negative) mg/dL Salicylates (2.8-20.0) mg/dL 2.9 Urine Opiates Screen (Negative) Urine Methadone Screen (Negative) Acetaminophen (10-30) ug/mL < 2 Ur Barbiturates Screen (Negative) Ur Tricyclics Screen (Negative) Ur Amphetamines Screen (Negative) U Benzodiazepines Scrn (Negative) Urine Cocaine Screen (Negative) Ur THC Screen (Negative) Ethyl Alcohol (<3) mg/dL 180.6 Range/Units 06/23/20 06/23/20 06/23/20 08:50 08:55 08:55 WBC (4.4-10.8) 10^3/uL RBC (4.36-5.78) 10^6/uL Hgb (13.5-17.5) g/dL Hct (40.0-50.0) % MCV (80-95) fL MCH (27.0-33.0) pg MCHC (32.0-36.0) % RDW (11.8-14.1) % Plt Count (130-400) 10^3/uL MPV (8.0-11.0) fL Immature Gran % Neutrophils % Lymphocytes % Monocytes % Eosinophils % Basophils % Nucleated RBC % % Absolute Neutrophils (1.2-6.7) 10^3/uL Absolute Lymphocytes (1.2-3.4) 10^3/uL Absolute Monocytes (0.1-0.8) 10^3/uL Absolute Eosinophils (0.0-0.7) 10^3/uL Absolute Basophils (0.0-0.2) 10^3/uL Sodium (136-145) mmol/L Potassium (3.5-5.1) mmol/L Chloride (98-107) mmol/L Carbon Dioxide (21.0-32.0) mmol/L Anion Gap (3-11) mmol/L BUN (7-18) mg/dL Creatinine (0.70-1.30) mg/dL Estimated GFR/1.73 m2 (mL/min/1.73m2) Glucose (74-106) mg/dL Calcium (8.5-10.1) mg/dL Total Bilirubin (0.2-1.0) mg/dL AST (15-37) U/L ALT (16-63) U/L Alkaline Phosphatase (46-116) U/L Total Protein (6.4-8.2) g/dL Albumin (3.4-5.0) g/dL TSH (0.36-3.74) uIU/mL Urine Color (Yellow) Yellow Urine Clarity (Clear) Clear Urine pH (5-8) 5.5 Ur Specific [place] (1.005-1.025) 1.020 Urine Protein (Negative) mg/dL Negative Urine Ketones (Negative) mg/dL Trace H Urine Blood (Negative) Negative Urine Nitrite (Negative) Negative Urine Bilirubin (Negative) Negative Urine Urobilinogen (Up TO 0.2) EU/dL 0.2 Ur Leukocyte Esterase (Negative) Negative Urine Glucose (Negative) mg/dL Negative Salicylates (2.8-20.0) mg/dL Urine Opiates Screen (Negative) Negative Urine Methadone Screen (Negative) Negative Acetaminophen (10-30) ug/mL Ur Barbiturates Screen (Negative) Negative Ur Tricyclics Screen (Negative) Negative Ur Amphetamines Screen (Negative) Negative U Benzodiazepines Scrn (Negative) Negative Urine Cocaine Screen (Negative) Negative Ur THC Screen (Negative) Positive A Ethyl Alcohol (<3) mg/dL Cancelled HPI General Mode of arrival: ambulatory. Date/Time Provider Initiated Documentation: 06/23/20 08:08. Limitations to Documentation: no limitations. Information obtained by: patient. HPI Narrative: This is a 35-year-old male with a history of alcohol abuse, chronic kidney disease stage III, hypertension, major depression, noncompliance of medications, presenting to the ER today reporting increased stress, vague suicidal ideation, not wanting to be here anymore. He reports that this is nothing new, he has never like humans his entire life, and his stressors are increasing because he states that his cannot help him financially and he cannot ask for any help from his child. He does not have a specific plan and states that he does not want to act upon his suicidal ideations because he has a family and cats at home that rely on him. He does admit to drinking roughly 15 beers yesterday into this morning. He reports marijuana use whenever he is able to get some but has not had any over the past 24-36 hours. He did not take his medications over the past 36 hours. He denies recent illness or trauma. He denies smoking cigarettes or any other drug use except for marijuana as already stated. Patient denies doing anything today to try to harm himself. He later tells me that he punched a wall this morning injuring his right hand, which is his dominant hand. Related Data Home Medications Medication Instructions Recorded Confirmed bupropion HCl [Wellbutrin XL] 300 mg PO HS 03/05/14 06/23/20 quetiapine 400 mg PO HS 03/07/14 06/23/20 clonidine HCl [Catapres] 0.2 mg PO BID #20 tab 02/10/20 06/23/20 lisinopril 10 mg PO DAILY #20 tab 02/10/20 06/23/20 melatonin 10 mg PO HS 06/23/20 06/23/20 Previous Rx's Medication Instructions Recorded clonidine HCl [Catapres] 0.2 mg PO BID #20 tab 02/10/20 lisinopril 10 mg PO DAILY #20 tab 02/10/20 Allergies Allergy/AdvReac Type Severity Reaction Status Date / Time dust AdvReac Mild get all Uncoded 02/07/20 19:24 stuffed up General CARLOS: 2 Review of Systems Constitutional Constitutional: Denies fatigue, Denies fever(s) and Denies headache(s) Eyes Eyes: Denies change in vision ENT Ears, Nose, Mouth, and Throat: Denies headache(s) and Denies neck pain Cardiovascular Cardiovascular: Denies chest pain and Denies dyspnea Respiratory Respiratory: Denies dyspnea Gastrointestinal Gastrointestinal: Denies abdominal pain, Reports nausea and Denies vomiting Musculoskeletal Musculoskeletal: Denies back pain and Denies neck pain Integumentary/Breasts Skin/Breast: Denies rash Neurologic Neurologic: Denies headache(s) Psychiatric Psychiatric: Denies homicidal ideation and Reports suicidal ideation Endocrine Endocrine: Denies fatigue [facility] Medical History (Updated 06/23/20 @ 13:13 by AMIE Milan) Alcohol abuse Anxiety and depression Bipolar disorder CKD (chronic kidney disease) stage 3, GFR 30-59 ml/min Gout Hypokalemia Insomnia Surgical History History of hand surgery History of oral surgery Social History Smoking/Tobacco Use Status: Current every day Smoking risk assessment performed?: Yes Alcohol Intake: current Alcohol Intake frequency: a few times a week Alcohol type: beer Drug use: Daily Substance use type: marijuana Details: if I can afford it Do you feel safe at home: Yes Do you feel safe in your relationship?: Yes Exam Const General: cooperative, anxious and disheveled Nutritional Appearance: obese Orientation: alert, awake and oriented x3 HENMT Head: normal to inspection, normocephalic and atraumatic General nose exam: external nose normal Face and sinus: normal facial exam Mouth: moist mucous membranes Throat: posterior oropharynx normal Eyes General: appearance normal, both eyes and all related structures Alignment and Position: alignment normal Periorbital: periorbital findings normal Eyelids: eyelids normal Conjunctivae: conjunctivae normal Sclera: sclerae normal Cornea: corneas normal Pupils: PERRL EOM: EOM intact bilaterally Direct ophthalmoscopy: normal light reflex Neck Neck: normal visual inspection, full ROM, no meningeal signs, trachea midline and supple Resp Effort & Inspection: normal respiratory effort and able to speak in complete sentences Auscultation: clear to auscultation bilaterally Cardio Rate: tachycardic (130s) Rhythm: regular rhythm GI Inspection: normal to inspection Palpation: soft and nontender Back/Spine/Pelvis Back: No back tenderness Skin General skin exam: no rashes or lesions noted Neuro General: patient alert, patient awake, patient oriented x3, moves all extremities and no focal motor deficits Cranial Nerves: CN's II-XI intact bilaterally Speech: speech normal Gait: normal gait Motor: muscle tone normal throughout Sensory Exam: no sensory deficits noted Extrem Right upper extremity: full ROM, normal capillary refill and hand Details: tenderness (Contusion over fifth metacarpal, fourth and fifth MCP joint), swelling and ecchymosis Left upper extremity: normal to inspection, full ROM and normal capillary refill Right lower extremity: normal to inspection, full ROM and normal capillary refill Left lower extremity: normal to inspection, full ROM and normal capillary refill Psych Appearance: grossly normal and disheveled Mental Status: mental status grossly normal Speech and Movement: agitated and restless Mood: anxious mood and irritable mood Affect: animated Attitude: cooperative Thought Process: loose association Thought Content: suicidality Insight: limited Judgment: limited
[2020-06-23] MEDS: Normal Saline 1,000 ML 1000 ML IV ×2 (09:00→11:05)
[2020-06-23 09:07] LABS: Bilirubin Negative (Negative); Blood Negative (Negative); Clarity Clear (Clear); Glucose Negative (Negative); Ketones Trace mg/dL (Negative); Leukocyte Esterase Negative (Negative); Nitrite Negative (Negative); Urobilinogen 0.2 EU/dL (Up TO 0.2); pH 5.5 (5-8)
[2020-06-23 09:07] LABS: Abs Immature Grans 0.09 10^3/uL (0.0-0.06); Absolute Basophil Count 0.03 10^3/uL (0.0-0.2); Absolute Eosinophil Count 0.42 10^3/uL (0.0-0.7); Absolute Lymphocyte Count 2.15 10^3/uL (1.2-3.4); Absolute Monocyte Count 0.42 10^3/uL (0.1-0.8); Absolute Neutrophil Count 3.27 10^3/uL (1.2-6.7); Basophils % 0.5; Eosinophils % 6.6; HCT 43.7 % (40.0-50.0); HGB 15.4 g/dL (13.5-17.5); Immature Grans % 1.4; Lymphocytes % 33.7; MCH 31.8 pg (27.0-33.0); MCHC 35.2 % (32.0-36.0); MCV 90.3 fL (80-95); MPV 9.1 fL (8.0-11.0); Monocytes % 6.6; Neutrophils % 51.2; Nucleated RBC 0 %; Platelet Count 274 10^3/uL (130-400); RBC 4.84 10^6/uL (4.36-5.78); RDW-SD 39.3 fL; WBC 6.38 10^3/uL (4.4-10.8)
[2020-06-23] MEDS: Lisinopril 10 MG TAB PO (09:08)
[2020-06-23] MEDS: cloNIDine 0.1 MG TAB 0.2 MG PO (09:08)
[2020-06-23 09:19] VITALS: BP 154/101; PULSE 113
[2020-06-23 09:25] LABS: *AMPHETAMINES SCREEN URINE Negative (Negative); *BARBITURATES SCREEN URINE Negative (Negative); *BENZODIAZEPINES SCREEN URINE Negative (Negative); Cannabinoids THC POSITIVE (Negative); Cocaine Screen,Urine Negative (Negative); METHADONE URINE SCREEN Negative (Negative); OPIATES URINE SCREEN Negative (Negative)
[2020-06-23 09:27] LABS: Salicylate 2.9 mg/dL (2.8-20.0)
[2020-06-23 09:29] LABS: ALT 38 U/L (16-63); AST 36 U/L (15-37); Albumin 4.1 g/dL (3.4-5.0); Alkaline Phosphatase 139 U/L (46-116); Anion Gap 17.3 mmol/L (3-11); BUN 8 mg/dL (7-18); Bilirubin, Total 0.4 mg/dL (0.2-1.0); CO2 19.7 mmol/L (21.0-32.0); CREATININE 1.62 mg/dL (0.70-1.30); Calcium 8.9 mg/dL (8.5-10.1); Chloride 99 mmol/L (98-107); ETHANOL BLOOD 180.6 mg/dL (<3); Estimated GFR 48.73 (mL/min/1.73m2); Glucose 97 mg/dL (74-106); Potassium 3.9 mmol/L (3.5-5.1); Sodium 136 mmol/L (136-145); TSH 4.91 uIU/mL (0.36-3.74); Total Protein 8.2 g/dL (6.4-8.2)
[2020-06-23 09:30] LABS: Acetaminophen < 2 ug/mL (10-30)
[2020-06-23 09:32] LABS: Tricyclic Antidepressants Negative (Negative)
--- NOTE | 2020-06-23 10:01 | DI.RAD_ITS ---
EXAM: XR HAND RT COMPLETE CLINICAL HISTORY: punched a wall. TECHNIQUE: 2D digital imaging was performed. COMPARISON: CR RIGHT HAND COMPLETE from 03/05/2014 FINDINGS: BONES: There are findings of a healed right 5th metacarpal fracture. However, on the oblique view th ere is a horizontal lucency traversing the callus raising the question of an acute fracture. No othe r fracture or dislocation is identified. No bony destructive lesion is seen. JOINTS: No dislocation present. SOFT TISSUE: There is soft tissue swelling adjacent to the 5th metacarpal. IMPRESSION: Findings suspicious for an acute nondisplaced fracture of the right 5th metacarpal bone. Findings we re discussed with the emergency department on the date of the examination. DATA REPOSITORY: RADIATION DOSE DELIVERED:
--- NOTE | 2020-06-23 11:14 | NUR.NOTE ---
Nursing Note: Brant from mental health reports will not evaluate pt until ETOH blood level is 0. Provider aware. Per CM, no care plan until after evaluation by mental health. Tray ordered for pt.
[2020-06-23 12:08] VITALS: BP 138/95; PULSE 90; O2SAT 98
--- NOTE | 2020-06-23 12:12 | NUR.NOTE ---
Nursing Note: Lunch delivered and provided extra fluid to drink.
--- NOTE | 2020-06-23 12:32 | PDOC.CMSAFED ---
- If Service Date Differs Date of service: 06/23/20 Time of Service: 12:32 Care Management Safety Plan Chief Complaint: Yuri is a 35 year old male who presents in the emergency department for suicidal ideation and intoxication. CM will respond to ED to assess patient after patient has been medically cleared and assessed by screener. If screener deems patient meets criteria for psychiatric stabilization CM will facilitate interdepartmental huddle with [facility] screener for safety planning considerations and meet with patient to review [facility] policy and safety plan, establish individual wishes for treatment and maintain patient rights. In the interim; please note safety plan below to guide patient care while awaiting further assessment in the ED. SAFETY PLAN: 1. Will remain on suicide precautions and in paper clothes. 2. Will remain in room under direct supervision of one-on-one staff at all times provided by CPSO, LEILA, [employer] pharmacy billing adjudicator. 3. May have paper cups, plates, finger foods as well as a cardboard spoon with which to eat meals. 4. Follow [facility] Management of the Admitted Behavioral Health Patient policy. 5. Comfort bath system only. 6. No personal belongings 7. Visitors: No visitors at this time. 8. Activities: None at this time. 8. No telephone privileges at this time. 9. Due to VOLUNTARY status, if patient wishes to leave [facility], the [facility] central office worker must be contacted to evaluate patient prior to patient exiting the building. If deemed appropriate for inpatient psychiatric care, safety plan will be established with patient, and care team, to adhere to patient goals, identify restrictions based on behavioral status, address nutrition, and determine allowed personal belongings, tools for hygiene and personal care. As well plan will determine level of activity including ambulation, level of supervision, visitors, and determine privileges based on level of acuity, behaviors and level of engagement by patient.
--- NOTE | 2020-06-23 13:14 | NUR.NOTE ---
Nursing Note: Referral to establish care with [facility] given to Care Management. Ericka Moya
--- NOTE | 2020-06-23 13:15 | NUR.NOTE ---
Nursing Note: pt states wants to leave,no longer feels actively suicidal. Pt agrees he is back to baseline for depression. Provider aware and has seen pt.
[2020-06-23 13:16] VITALS: BP 138/95; PULSE 90; O2SAT 98
--- NOTE | 2020-06-23 17:20 | CMPROGNOTE_ITS ---
- If Service Date Differs Date of service: 06/23/20 Time of Service: 17:20 Care Management Progress Note At the request of AMIE Parks, ED provider, THERESE coordinates a referral to [facility] for mental health and substance abuse therapy. [facility] intake office will outreach directly to Yuri to schedule the appointment.
--- NOTE | 2020-06-23 17:20 | PDOC.ERCMPRO ---
- If Service Date Differs Date of service: 06/23/20 Time of Service: 17:20 Care Management Progress Note At the request of AMIE Parks, ED provider, THERESE coordinates a referral to [facility] for mental health and substance abuse therapy. [facility] intake office will outreach directly to Yuri to schedule the appointment.
[2020-06-23 21:22] LABS: COVID-19 RT-PCR Result Not Detected
== END 2020-06-23 13:32 | disposition home or self-care (01) ==
PROVIDERS: Emergency Provider Physician Assistant; PCP Nurse Practitioner Family
DX: S62.366A Nondisplaced fracture of neck of fifth metacarpal bone, right hand, initial encounter for closed fracture (principal); W22.01XA Walked into wall, initial encounter; F41.8 Other specified anxiety disorders; R45.851 Suicidal ideations; F10.120 Alcohol abuse with intoxication, uncomplicated; Y90.6 Blood alcohol level of 120-199 mg/100 ml; Z03.818 Encounter for observation for suspected exposure to other biological agents ruled out; Z91.128 Patient's intentional underdosing of medication regimen for other reason; I12.9 Hypertensive chronic kidney disease with stage 1 through stage 4 chronic kidney disease, or unspecified chronic kidney disease; N18.30 Chronic kidney disease, stage 3 unspecified
CPT/HCPCS: 26600; 36415; 80053; 80307; 96360; 96361; 99284; U0003; 73130; 80320; 80329; 81003; 84443; 85025; 99281; L3809

== ENCOUNTER 2021-01-18 19:28 | Outpatient (REF) | payer MEDICAID, SELFPAY ==
[2021-01-18 20:48] LABS: HGB 15.1 g/dL (13.5-17.5); MCH 30.3 pg (27.0-33.0); MCHC 34.3 % (32.0-36.0); MCV 88.4 fL (80-95); MPV 10.4 fL (8.0-11.0); Platelet Count 253 10^3/uL (130-400); RBC 4.98 10^6/uL (4.36-5.78); RDW 11.9 % (11.8-14.1); RDW-SD 38.4 fL; WBC 10.85 10^3/uL (4.4-10.8)
[2021-01-18 21:01] LABS: ALT 51 U/L (16-63); AST 31 U/L (15-37); Albumin 4.1 g/dL (3.4-5.0); Alkaline Phosphatase 193 U/L (46-116); Anion Gap 8.7 mmol/L (3-11); BUN 9 mg/dL (7-18); Bilirubin, Total 0.6 mg/dL (0.2-1.0); CO2 28.3 mmol/L (21.0-32.0); CREATININE 1.6 mg/dL (0.70-1.30); Calcium 9.4 mg/dL (8.5-10.1); Chloride 103 mmol/L (98-107); Estimated GFR 49.44 (mL/min/1.73m2); Glucose 88 mg/dL (74-106); Potassium 4.5 mmol/L (3.5-5.1); Sodium 140 mmol/L (136-145); TSH (W/Ref FT4) 1.48 uIU/mL (0.36-3.74); Total Protein 7.7 g/dL (6.4-8.2); Uric Acid 7.2 mg/dL (3.5-7.2)
[2021-01-18 21:05] LABS: Hemoglobin A1C 5.6 % (<5.7)
[2021-01-20 11:02] LABS: Hepatitis C Ab w Rflx HCV PCR Negative (Negative)
[2021-01-20 11:17] LABS: HIV-1/2 Ag & Ab Screen Negative (Negative)
== END 2021-01-18 19:29 | disposition home or self-care (01) ==
LOC: LBN 19:28
PROVIDERS: PCP Nurse Practitioner Family; Visit Provider Nurse Practitioner Family
DX: I10 Essential (primary) hypertension (principal); R53.83 Other fatigue; M10.9 Gout, unspecified; Z11.4 Encounter for screening for human immunodeficiency virus [HIV]; D53.9 Nutritional anemia, unspecified; D69.1 Qualitative platelet defects; R73.03 Prediabetes; Z11.59 Encounter for screening for other viral diseases
CPT/HCPCS: 80053; 85027; 86803; 87389; 83036; 84443; 84550

== ENCOUNTER 2021-12-24 18:48 | Outpatient (REF) | payer MEDICAID, SELFPAY ==
[2021-12-24 15:41] LABS: Hemoglobin A1C 5.6 % (<5.7)
[2021-12-24 15:45] LABS: ALT 32 U/L (16-63); AST 26 U/L (15-37); Albumin 3.9 g/dL (3.4-5.0); Alkaline Phosphatase 175 U/L (46-116); Anion Gap 9.3 mmol/L (3-11); BUN 10 mg/dL (7-18); Bilirubin, Total 0.6 mg/dL (0.2-1.0); CO2 28.7 mmol/L (21.0-32.0); CREATININE 1.6 mg/dL (0.70-1.30); Calcium 9.3 mg/dL (8.5-10.1); Calculated LDL 124 mg/dL (<100); Chloride 103 mmol/L (98-107); Cholesterol 187 mg/dL (<200); Estimated GFR 49.15 (mL/min/1.73m2); Glucose 94 mg/dL (74-106); HDL Cholesterol 28 mg/dL (40-60); Sodium 141 mmol/L (136-145); Total Protein 7.2 g/dL (6.4-8.2); Triglyceride 177 mg/dL (<150)
[2021-12-24 15:57] LABS: Uric Acid 5.8 mg/dL (3.5-7.2)
== END 2021-12-24 18:49 | disposition home or self-care (01) ==
LOC: NCHCN 18:48
PROVIDERS: PCP Nurse Practitioner Family; Visit Provider Physician Assistant
DX: M10.9 Gout, unspecified (principal); R73.03 Prediabetes; I10 Essential (primary) hypertension
CPT/HCPCS: 80053; 80061; 83036; 84550

== ENCOUNTER 2022-11-25 17:24 | Outpatient (REF) | payer MEDICAID, SELFPAY ==
[2022-11-25 19:10] LABS: Abs Immature Grans 0.02 10^3/uL (0.0-0.06); Absolute Basophil Count 0.03 10^3/uL (0.0-0.2); Absolute Eosinophil Count 0.36 10^3/uL (0.0-0.7); Absolute Lymphocyte Count 1.77 10^3/uL (1.2-3.4); Absolute Monocyte Count 0.45 10^3/uL (0.1-0.8); Absolute Neutrophil Count 3.67 10^3/uL (1.2-6.7); Basophils % 0.5; Eosinophils % 5.7; HCT 43.9 % (40.0-50.0); HGB 15.2 g/dL (13.5-17.5); Immature Grans % 0.3; Lymphocytes % 28.1; MCH 30.8 pg (27.0-33.0); MCHC 34.6 % (32.0-36.0); MCV 89 fL (80-95); MPV 10.3 fL (8.0-11.0); Monocytes % 7.1; Neutrophils % 58.3; Platelet Count 235 10^3/uL (130-400); RBC 4.93 10^6/uL (4.36-5.78); RDW 11.8 % (11.8-14.1)
[2022-11-25 19:38] LABS: Hemoglobin A1C 5.6 % (<5.7)
[2022-11-25 19:47] LABS: ALT 40 U/L (16-63); AST 35 U/L (15-37); Alkaline Phosphatase 160 U/L (46-116); Anion Gap 3.9 mmol/L (3-11); BUN 11 mg/dL (7-18); Bilirubin, Total 0.4 mg/dL (0.2-1.0); CO2 31.1 mmol/L (21.0-32.0); CREATININE 1.6 mg/dL (0.70-1.30); Calcium 9.8 mg/dL (8.5-10.1); Chloride 102 mmol/L (98-107); Estimated GFR 56.56 (mL/min/1.73m2); Glucose 82 mg/dL (74-106); Magnesium 2.1 mg/dL (1.8-2.4); Sodium 137 mmol/L (136-145); TSH (W/Ref FT4) 2.57 uIU/mL (0.36-3.74); Vitamin B12 384 pg/mL (193-986)
[2022-11-25 19:52] LABS: Vitamin D 25 Total 51.8 ng/mL (30-100)
== END 2022-11-25 17:25 | disposition home or self-care (01) ==
LOC: NCHCN 17:24
PROVIDERS: Visit Provider Registered Nurse
DX: F31.30 Bipolar disorder, current episode depressed, mild or moderate severity, unspecified (principal); Z79.899 Other long term (current) drug therapy
CPT/HCPCS: 80053; 82306; 82607; 83036; 83735; 84443; 85025

== ENCOUNTER 2023-12-14 14:45 | Outpatient (REF) | payer MEDICAID, SELFPAY ==
[2023-12-14 19:57] LABS: Hemoglobin A1C 5.5 % (<5.7)
[2023-12-14 20:40] LABS: ALT 32 U/L (16-63); AST 25 U/L (15-37); Albumin 4.1 g/dL (3.4-5.0); Alkaline Phosphatase 174 U/L (46-116); Anion Gap 9.5 mmol/L (3-11); BUN 9 mg/dL (7-18); Bilirubin, Total 0.4 mg/dL (0.2-1.0); CO2 27.5 mmol/L (21.0-32.0); CREATININE 1.5 mg/dL (0.70-1.30); Calcium 9.4 mg/dL (8.5-10.1); Calculated LDL 134 mg/dL (<100); Chloride 106 mmol/L (98-107); Cholesterol 192 mg/dL (<200); Estimated GFR 60.73 (mL/min/1.73m2); Glucose 102 mg/dL (74-106); HDL Cholesterol 31 mg/dL (40-60); Potassium 3.9 mmol/L (3.5-5.1); Sodium 143 mmol/L (136-145); Total Protein 7.1 g/dL (6.4-8.2); Triglyceride 136 mg/dL (<150)
== END 2023-12-14 14:46 | disposition home or self-care (01) ==
LOC: NCHCN 14:45
PROVIDERS: Visit Provider Physician Assistant
DX: E78.1 Pure hyperglyceridemia (principal); R73.03 Prediabetes; I10 Essential (primary) hypertension
CPT/HCPCS: 80053; 80061; 83036

== ENCOUNTER 2025-02-27 14:13 | Outpatient (REF) | payer MEDICAID, SELFPAY ==
[2025-02-27 20:00] LABS: ALT 27 U/L (16-63); AST 22 U/L (15-37); Albumin 3.8 g/dL (3.4-5.0); Alkaline Phosphatase 173 U/L (46-116); Anion Gap 8.9 mmol/L (3-11); BUN 10 mg/dL (7-18); Bilirubin, Total 0.6 mg/dL (0.2-1.0); CO2 27.1 mmol/L (21.0-32.0); Calcium 9.4 mg/dL (8.5-10.1); Calculated LDL 128 mg/dL (<100); Chloride 103 mmol/L (98-107); Cholesterol 189 mg/dL (<200); Estimated GFR 71.67 (mL/min/1.73m2); Glucose 85 mg/dL (74-106); HDL Cholesterol 28 mg/dL (>or=40); Potassium 4.2 mmol/L (3.5-5.1); Sodium 139 mmol/L (136-145); Total Protein 6.7 g/dL (6.4-8.2); Triglyceride 168 mg/dL (<150)
== END 2025-02-27 14:14 | disposition home or self-care (01) ==
LOC: NCHCN 14:13
PROVIDERS: Visit Provider Physician Assistant
DX: E78.1 Pure hyperglyceridemia (principal)
CPT/HCPCS: 80053; 80061